=== PATIENT | male | born 1955 | race Caucasian/White ===

== ENCOUNTER 2017-01-04 09:51 | Inpatient (IN) | payer OTHER ==
[2016-12-17 08:54] VITALS: BMI 37.0
--- NOTE | 2016-12-17 09:35 | PAT Medication Instructions ---
Service Date Dec 17, 2016. Current Home Medication List Aspirin (Aspirin Ec), 81 MG PO HS Atenolol (Tenormin), 25 MG PO QPM Atorvastatin (Lipitor), 20 MG PO HS Cetirizine (Zyrtec), 10 MG PO PRN PRN for SKIN IRRITATION Ibuprofen (Advil), 200-600 MG PO Q4H PRN for Pain Medication Instructions For Your Scheduled Surgery - Hold the following medications 2 weeks prior to surgery: Ibuprofen (Advil), 200-600 MG PO Q4H PRN for Pain - Hold the following medications the morning of surgery: Cetirizine (Zyrtec), 10 MG PO PRN PRN for SKIN IRRITATION - Take the following medications the morning of surgery with a sip of water: Tylenol (if needed) - Take the following medications as scheduled the night before surgery: Atorvastatin (Lipitor), 20 MG PO HS Aspirin (Aspirin Ec), 81 MG PO HS Atenolol (Tenormin), 25 MG PO QPM Cetirizine (Zyrtec), 10 MG PO PRN PRN for SKIN IRRITATION Tylenol (if needed) If you have any questions please call us at [phone] or [phone] ( Johanne) or [phone]
[2016-12-17 10:11] LABS: URINE APPEARANCE CLEAR (CLEAR); URINE BILIRUBIN NEG (NEG); URINE COLOR YELLOW; URINE NITRITE NEG (NEG); URINE SPECIFIC GRAVITY 1.025 (1.000-1.030); UROBILINOGEN NEG (NEG); ZZUR CULT IF INDIC CLEAN CATCH NO
[2016-12-17 10:13] LABS: MANUAL MICROSCOPIC REQUIRED? NO; REVIEW REQ? NO
[2016-12-17 10:24] LABS: PROTHROMBIN TIME (PATIENT) 10.6 SECONDS (9.0-12.0)
[2016-12-17 10:34] LABS: BASO % 0.4 %; BASO ABS # 0.02 K/uL (0-0.2); BUN/CREATININE RATIO 21.3 (10-20); CALCIUM 8.8 mg/dl (8.5-10.1); COMPLETE YES; CREATININE 0.88 mg/dl (0.60-1.40); EOS % 1.4 %; HEMATOCRIT 43.9 % (42-52); IG% 0.2 %; LYMPH ABS # 1.39 K/uL (1.2-3.4); MEAN CELL VOLUME 88.2 fL (80-100); MEAN CORPUSCULAR HEMOGLOBIN 30.5 pg (25-34); MEAN CORPUSCULAR HGB CONC 34.6 g/dl (32-36); MEAN PLATELET VOLUME 9.5 fL (7.4-10.4); MONO % 10.2 %; NEUT % 62.8 %; PLATELET COUNT 186 K/uL (130-400); POTASSIUM 4.7 mmol/L (3.5-5.1); RED BLOOD COUNT 4.98 M/uL (4.7-6.1); WHITE BLOOD COUNT 5.57 K/uL (4.8-10.8)
--- NOTE | 2016-12-17 10:45 | DIAGNOSTIC IMAGING REPORT ---
CHEST 2 VIEWS ROUTINE CLINICAL HISTORY: Preoperative evaluation. COMPARISON STUDY: Chest radiograph February 28, 2008. FINDINGS: Lung volumes are normal. No consolidation is identified to suggest pneumonia. Increased density projecting over the thoracic spine at several levels is likely due to lateral osteophytes. Mild cardiomegaly is noted. There is no evidence of pulmonary edema. IMPRESSION: 1. No acute findings. 2. Mild cardiomegaly. Electronically signed by: Castillo Mulligan M.D. 12/17/2016 10:43 AM Dictated Date/Time: 12/17/2016 10:37 AM
--- NOTE | 2017-01-01 14:36 | HISTORY & PHYSICAL EXAMINATION ---
DATE OF ADMISSION: 01/04/2017 CHIEF COMPLAINT: Left knee pain. HISTORY OF PRESENT ILLNESS: Mr. Chanel is a 61-year-old male with a 5-year history of left knee pain. He rates his pain at an 8/10. He has pain with his daily activities. He has limited standing and walking tolerance. Pain is worse with weightbearing. The patient has had injections, bracing, home exercise program and anti-inflammatories with little relief. He has failed conservative treatment and is scheduled for left knee replacement. PAST MEDICAL HISTORY: Hypercholesterolemia and obesity. He denies heart disease, diabetes or DVT. PAST SURGICAL HISTORY: Carpal tunnel release, left total hip arthroplasty and L4-L5 fusion. SOCIAL HISTORY: The patient denies tobacco use. He drinks 1 drink per month. He lives in a split level home. He is and works as a prince. FAMILY HISTORY: Positive for PE in his twin brother after a trauma. MEDICATIONS: Atenolol 20 mg daily, atorvastatin 25 mg daily, aspirin daily, and Advil p.r.n. ALLERGIES: None. REVIEW OF SYSTEMS: See HPI. Ten other systems reviewed, all negative. PHYSICAL EXAMINATION: VITAL SIGNS: Height 5 feet 10 inches, weight 260 pounds, and BMI 37. GENERAL: This is a well-developed and well-nourished male who is alert and oriented x3. Mood and affect are appropriate. HEENT: Normocephalic and atraumatic. Mucous membranes are moist and intact. NECK: Supple without lymphadenopathy. HEART: Regular rate and rhythm without murmurs, rubs or gallops. LUNGS: Clear to auscultation without wheezes or rhonchi. ABDOMEN: Soft and nontender. Bowel sounds are equal and active. EXTREMITIES: No ecchymosis, redness or warmth. Thigh and calf are soft and nontender. He has neutral alignment. Range of motion is from 3-110 degrees with +1 laxity. He is neurovascularly intact with +5/5 strength. X-RAY EXAMINATION: AP and lateral views show joint space narrowing and osteophyte formation. IMPRESSION: Degenerative joint disease, left knee. PLAN: The patient will be admitted for a left total knee arthroplasty. We will plan on aspirin for DVT prophylaxis. The patient's PCP is Dr. Allen. He has [facility] insurance.
[~2017-01-04] VITALS: Ht 177.8 cm; Wt 118.0 kg
[2017-01-04] VITALS (9 sets, daily range): BP systolic 114–145; BP diastolic 67–87; PULSE 60–78; TEMP 36.6–36.7; O2SAT 94–98; Ht 177.8 cm; Wt 118.0 kg
[~2017-01-04 09:51] MED LIST: ACETAMINOPHEN 500 MG TAB PO SCH; ASPI81TA28 PO; ATEN-173 PO; ATOR-22 PO; BUPIVACAINE 0.5 % 5 MG/1 ML PF 10ML VIAL ONE; CEFAZOLIN 3000 MG/65 ML D5W 65 ML IV SCH; CETI10TA84 PO; CeleBREX 200 MG CAP PO SCH; DEXAMETHASONE 4 MG TAB PO SCH; FAMOTIDINE 20 MG TAB PO SCH; GABAPENTIN 300 MG CAP PO SCH; IBUP-1050 PO; LACTATED RINGER'S 1000ML 1,000 ML IV SCH; LACTATED RINGER'S 1000ML 500 ML IV ONE; LACTATED RINGER'S 1000ML IV SCH; METOCLOPRAMIDE HCL 10 MG TAB PO SCH; OXYCODONE HCL 10 MG TABCR (OXYCONTIN) PO SCH; POLYMYXIN B SULFATE 100,000 UNITS in NSS 100ML IR SCH; ROPIVACAINE 5MG/ML 30 ML 150 MG, BUPIVACAINE/EPINEPHR 0.5% MPF 30 ML, KETOROLAC TROMETH... INFIL SCH; VANCOMYCIN INJ 400 MG in NSS 100ML IR SCH
[2017-01-04] MEDS ORDERED: ACET-1256 PO (10:19)
--- NOTE | 2017-01-04 10:33 | History & Physical Bridge Note ---
H&P Re-Evaluation Bridge Note: I have examined the patient, reviewed the History & Physical and in the interval since the performance of the History & Physical I have noted the following changes of clinical significance: No changes noted
[2017-01-04] MEDS ORDERED: FENTANYL CITRATE INJ 50 MCG/1 ML 2 ML VIAL ONE (10:41)
[2017-01-04] MEDS ORDERED: MIDAZOLAM HCL 1 MG/ML 2ML VIAL ONE ×3 (10:41→11:48)
[2017-01-04] MEDS ORDERED: ATROPINE SULFATE 0.1 MG/ML 5ML SYR IV PRN (10:45)
[2017-01-04] MEDS ORDERED: FENTANYL CITRATE INJ 50 MCG/1 ML 2 ML VIAL IV PRN (10:45)
[2017-01-04] MEDS ORDERED: EpHEDrine SULFATE INJ 50 MG/ML AMP IV PRN (10:45)
[2017-01-04] MEDS ORDERED: ONDANSETRON INJ 2 MG/ML 2 ML VIAL IV PRN ×2 (10:45→13:00)
[2017-01-04] MEDS ORDERED: MEPERIDINE HCL 25 MG/ML CARP IV PRN (10:45)
[2017-01-04] MEDS ORDERED: MoRPHine SULFATE 10 MG/ML CARP/VIAL IV PRN (10:45)
[2017-01-04] MEDS: TRANEXAMIC ACID INJ 1,000 MG in SODIUM CHLORIDE 0.9% 100ML 100 ML IV SCH ×2 (11:16→12:42)
[2017-01-04] MEDS ORDERED: BACITRACIN 50000 UNIT VIAL ONE (11:21)
[2017-01-04] MEDS ORDERED: POVIDONE-IODINE OP SOLN 30 ML BTL ONE (11:21)
[2017-01-04] MEDS ORDERED: BUPIVACAINE/EPINEPHRINE 0.25% 1:200,000 30 ML VIAL ONE (11:21)
[2017-01-04] MEDS ORDERED: ORTHO JOINT ANESTHETIC ONE (11:21)
[2017-01-04] MEDS ORDERED: LIDOCAINE HCL 2% 2 ML VIAL (20MG/ML) ONE (12:30)
[2017-01-04] MEDS ORDERED: PROPOFOL IV EMULSION 10 MG/ML 20 ML VIAL IV ONE (12:30)
--- NOTE | 2017-01-04 12:47 | [facility] Post Operative Brief Note ---
Immediate Operative Summary Operative Date Jan 04, 2017. Pre-Operative Diagnosis Left Knee Degenerative Joint Disease Post-Operative Diagnosis Left Knee Degenerative Joint Disease Procedure(s) Performed Left Total Knee Arthroplasty, Cemented Surgeon Dr. Mikie Buckley Global Lead Surgeon(s) Kay Chaidez PA-C Estimated Blood Loss 100mL Findings djd Specimens A: Left Knee Bone and Tissue Complication(s) None Disposition Recovery Room / PACU
[2017-01-04] MEDS ORDERED: CETIRIZINE HCL 10 MG TAB PO PRN (13:00)
[2017-01-04] MEDS ORDERED: BISACODYL 10 MG SUPP PR PRN (13:00)
[2017-01-04] MEDS ORDERED: ALUMINUM/MAGNESIUM/SIMETH (MAALOX MAX) 30 ML UDC PO PRN (13:00)
[2017-01-04] MEDS ORDERED: MoRPHine SULFATE 2 MG/ML CARP IV PRN (13:00)
[2017-01-04] MEDS ORDERED: TRAMADOL HCL 50 MG TAB PO PRN (13:00)
[2017-01-04] MEDS ORDERED: ZOLPIDEM TARTRATE 5 MG TAB PO PRN (13:00)
[2017-01-04] MEDS ORDERED: METOCLOPRAMIDE HCL INJ 5 MG/ML 2 ML VIAL IV PRN (13:00)
[2017-01-04] MEDS ORDERED: KETOROLAC TROMETHAMINE 30 MG/ML VIAL IV. PRN (13:00)
[2017-01-04] MEDS ORDERED: MAGNESIUM HYDROXIDE SUSP 30 ML UDC PO PRN (13:00)
[2017-01-04] MEDS ORDERED: DiphenhydrAMINE HCL 50 MG/ML VIAL IV PRN (13:00)
[2017-01-04] MEDS ORDERED: SOD PHOSPHATE/SOD BIPHOSPHATE ENEMA 132 ML BTL PR PRN (13:00)
--- NOTE | 2017-01-04 13:37 | DIAGNOSTIC IMAGING REPORT ---
LEFT KNEE 1 OR 2 VIEWS ROUTINE CLINICAL HISTORY: AP/LATERAL IN PACU LEFT KNEE joint replacement COMPARISON: None. DISCUSSION: Anatomic alignment status post total left knee arthroplasty. Good contact between prosthetic and underlying bone. Expected soft tissue postoperative change IMPRESSION: Anatomic alignment status post total left knee arthroplasty Electronically signed by: Tomer Merrill M.D. 01/04/2017 1:36 PM Dictated Date/Time: 01/04/2017 1:35 PM
--- NOTE | 2017-01-04 13:53 | Anesthesiology Progress Note ---
Anesthesia Post Op Note Date & Time Jan 04, 2017 at 13:53 Vital Signs Pain Intensity: 0 Vital Signs Past 12 Hours Date Time Temp Pulse Resp B/P Pulse Ox O2 Delivery O2 Flow Rate FiO2 01/04/17 13:45 36.4 61 16 115/65 98 Nasal Cannula 2 01/04/17 13:35 57 16 110/69 98 Mask 10 01/04/17 13:26 58 16 104/67 98 Mask 10 01/04/17 13:16 36.2 63 16 96/67 98 Mask 10 01/04/17 10:24 36.7 60 20 145/87 97 Room Air 01/04/17 10:21 36.7 60 20 145/87 Notes Mental Status: alert / awake / arousable, participated in evaluation Pt Amnestic to Procedure: Yes Nausea / Vomiting: adequately controlled Pain: adequately controlled Airway Patency, RR, SpO2: stable & adequate BP & HR: stable & adequate Hydration State: stable & adequate Neuraxial Anesthesia: was administered, sensory block is resolving Anesthetic Complications: no major complications apparent
[2017-01-04] MEDS: D5W AND 1/2NSS + 20MEQ KCL 1,000 ML IV SCH (15:29)
[2017-01-04] MEDS ORDERED: TRANEXAMIC ACID INJ 1,000 MG in SODIUM CHLORIDE 0.9% 100ML 100 ML IV SCH (19:30)
[2017-01-04] MEDS: CEFAZOLIN IV 2,000 MG in DEXTROSE 5% 50ML 50 ML IV SCH (19:35)
[2017-01-04] MEDS ORDERED: SENNA 8.6 MG TAB PO SCH (21:00)
[2017-01-04] MEDS ORDERED: ATORVASTATIN 20 MG TAB PO SCH (21:00)
[2017-01-04] MEDS: OXYCODONE HCL 10 MG TABCR (OXYCONTIN) PO SCH (21:04)
[2017-01-04] MEDS: ASPIRIN 81 MG ECTAB PO SCH (21:05)
[2017-01-04] MEDS: OXYCODONE HCL IR 5 MG TAB (IMMEDIATE RELEASE) PO PRN (21:49)
[2017-01-04] MEDS: ACETAMINOPHEN 500 MG TAB PO SCH (21:50)
--- NOTE | 2017-01-05 00:06 | OPERATIVE REPORT ---
DATE OF OPERATION: 01/04/2017 PREOPERATIVE DIAGNOSIS: Degenerative arthritis, left knee. POSTOPERATIVE DIAGNOSIS: Same. PROCEDURE: Left total knee with patient matched implant. SURGEON: Dr. Buckley. AUTOMOTIVE DESIGN LAYOUT DRAFTER: BETTY Rowe. ANESTHESIA: Spinal. BLOOD LOSS: 100 mL. REPLACEMENT FLUIDS: 1800 mL of crystalloid. DRAINS: Hemovac x2. CULTURES: None. COMPLICATIONS: None. COMPONENTS USED: Medina \T\ Nephew Journey Knee System: Femur size 7, tibia size 6 x 9, patella size 38. NOTE: BETTY Rowe was present and assisted throughout due to the complicated nature of this case. She helped with preparation and setup. She first assisted throughout and personally closed the capsule, subcutaneous and skin layers and applied the postoperative dressing. DESCRIPTION OF PROCEDURE: Following satisfactory spinal, the patient was supine. A tourniquet was placed but not inflated. The lower extremity was prepared with ChloraPrep and draped sterilely. Following a surgical time-out, a midline incision was made with a trivector approach. The knee showed grade 4 changes throughout, but especially severe in the medial compartment. The cruciate ligaments were excised. The patient matched femoral block was applied. Femoral distal rotation and resection were set and completed. The 4-in-1 block was used to finish preparation of the femur. The patient matched tibial block was applied. Tibial resection was completed. The patella was freehand cut. Soft tissue balancing was completed and a trial reduction showed good tensioning and stability on the collateral ligaments, stable range of motion, and the patella tracked well. The trial components were removed. The capsule was prepared with the orthopedic cocktail. After irrigation, the components were cemented using Simplex G cement. When the cement had hardened, the Betadine soak was performed, the Betadine was then irrigated. Two drains were placed. The arthrotomy was then closed with a running suture of 0 V-Loc. The subcutaneous tissues with 2-0 Vicryl. The skin with a running subcuticular stitch of 3-0 V-Loc. Dermabond and a dry dressing were applied. The patient was returned to his bed in stable condition. I attest to the content of the Intraoperative Record and any orders documented therein. Any exceptio ns are noted below.
[2017-01-05] MEDS: D5W AND 1/2NSS + 20MEQ KCL 1,000 ML IV SCH ×2 (01:34→11:00)
[2017-01-05] MEDS: OXYCODONE HCL IR 5 MG TAB (IMMEDIATE RELEASE) PO PRN ×3 (01:37→16:53)
[2017-01-05 03:12] VITALS: BP 108/66; PULSE 62; TEMP 36.7; O2SAT 98
[2017-01-05] MEDS: CEFAZOLIN IV 2,000 MG in DEXTROSE 5% 50ML 50 ML IV SCH (03:45)
[2017-01-05] MEDS: ACETAMINOPHEN 500 MG TAB PO SCH ×2 (05:33→13:54)
[2017-01-05 07:48] LABS: HEMATOCRIT 36.2 % (42-52); MEAN CELL VOLUME 86.2 fL (80-100); MEAN CORPUSCULAR HEMOGLOBIN 29.8 pg (25-34); MEAN CORPUSCULAR HGB CONC 34.5 g/dl (32-36); MEAN PLATELET VOLUME 9.2 fL (7.4-10.4); PLATELET COUNT 176 K/uL (130-400); WHITE BLOOD COUNT 12.44 K/uL (4.8-10.8)
--- NOTE | 2017-01-05 07:55 | Orthopedic Progress Note ---
Orthopedic Progress Note Date of Service Jan 05, 2017. Subjective Post OP Day: 1 Reports: feeling well, Denies: SOB, calf pain, chest pain, light headedness, nausea / vomiting Objective calves soft nontender, N/V intact, dressing C/D/I, A&O x3, toes mobile, hemovac drainage (300ml latest shift) Date Time Temp Pulse Resp B/P Pulse Ox O2 Delivery O2 Flow Rate FiO2 01/05/17 03:12 36.7 62 16 108/66 98 Room Air 01/04/17 23:45 Room Air 01/04/17 23:27 36.7 65 16 114/67 94 Room Air 01/04/17 19:25 36.7 78 18 129/86 95 Room Air 01/04/17 17:36 71 16 126/83 01/04/17 16:00 98 Nasal Cannula 2.0 01/04/17 15:32 66 16 125/79 98 Nasal Cannula 2.0 01/04/17 15:15 65 16 121/79 01/04/17 14:30 98 Nasal Cannula 2.0 01/04/17 14:30 36.6 63 16 118/73 98 Nasal Cannula 2.0 01/04/17 14:30 98 Nasal Cannula 2.0 01/04/17 14:05 36.4 58 16 113/73 97 Nasal Cannula 2 01/04/17 13:55 36.4 58 16 107/69 95 Nasal Cannula 2 01/04/17 13:45 36.4 61 16 115/65 98 Nasal Cannula 2 01/04/17 13:35 57 16 110/69 98 Mask 10 01/04/17 13:26 58 16 104/67 98 Mask 10 01/04/17 13:16 36.2 63 16 96/67 98 Mask 10 01/04/17 10:24 36.7 60 20 145/87 97 Room Air 01/04/17 10:21 36.7 60 20 145/87 Laboratory Results 24 Hours: Test 01/05/17 07:16 Hematocrit 36.2 % Hemoglobin 12.5 g/dL Assessment & Plan Assessment: POD 1 s/p Left TKA Plan: PT/OT Pt planning for OPPT Will follow HV drainage. If pt leaves today, he will need to come to the office for drain removal tomorrow. Inhouse Planning Pain Management: Celebrex, Oxycontin, Ultram, PO Tylenol, Oxy IR DVT Prophylaxis: TEDs, SCDs, ASA Discharge Planning Discharge Planning: home with oppt Pain Management: Morphine, PO Tylenol, Oxy IR DVT Prophylaxis: TEDs, ASA Therapy: Physical Therapy
--- NOTE | 2017-01-05 08:00 | Discharge Instructions ---
Discharge Instructions Date of Service Jan 05, 2017. Admission Reason for Admission: Left Degenerative Arthritis - Leg/Knee Discharge Discharge Diagnosis / Problem: Left Knee Djd Discharge Goals Goal(s): Decrease discomfort, Improve function Activity Recommendations Activity Limitations: per Instructions/Follow-up section Weightbearing Status: Left weightbearing (as tolerated) . Instructions / Follow-Up Instructions / Follow-Up ACTIVITY RECOMMENDATIONS: SELF CARE INSTRUCTIONS AFTER TOTAL KNEE REPLACEMENT A. You may need to continue a physical therapy program after discharge from the hospital. There are several options available to you. Your doctor will assist you in selecting the best one for you. 1. An out-patient facility 2 to 3 times a week for therapy or home therapy. 2. Continue working on all exercises taught to you in the hospital. Your goals should be to increase bending of your knee to 90 degrees and beyond and to fully straighten your knee. B. You may progress at your own pace from walking with a walker or crutches to a cane; then to no assistive devices. C. Make walking a part of your daily routine. Be up as much as comfortable with rest periods throughout the day. Rest with leg elevation is very important. Use the ice wrap frequently for the first 3-4 weeks. D. There are no restrictions on activities. You may ride in a car, shop, participate in engine manager and all social activities. E. Wear the long elastic stockings (ROBERT hose) 20 hours a day for 2 weeks after surgery. They can be removed several times a day for laundering and for a bath. F. You may shower, no tub baths until cleared by your doctor. SPECIAL CARE INSTRUCTIONS: VERY IMPORTANT TO READ AND REVIEW A. There are a few signs you need to watch for after you are home. Call [facility] if you notice any of the followin. Increased severe knee pain. Some pain is expected especially when you exercise. 2. Increased swelling in your leg or knee; pain or swelling of the calf muscle in either lower leg. 3. Any fluid drainage from the incision. 4. Shortness of breath or chest pain. B. Please call [facility] at if you have any concerns or questions about your operation or recovery. The doctor or his nurse will return your call promptly. C. You must take antibiotics before dental work, bladder, bowel or other surgery. Your doctor will provide you with a permanent care to carry describing this precaution. IMPORTANT: * REMEMBER TO TAKE ASPIRIN, 81 MG, TWICE DAILY FOR 4 WEEKS UNLESS OTHERWISE DIRECTED. THIS IS YOUR BLOOD THINNER. * HIGH RISK PATIENTS MAY BE PRESCRIBED A STRONGER BLOOD THINNER. THIS WILL BE PROVIDED AT DISCHARGE. * CALL IF INCREASED PAIN, REDNESS, DRAINAGE OR FEVER GREATER THAT 101. * WEAR ROBERT HOSE 20 HOURS PER DAY FOR 2 WEEKS. * DERMABOND Prineo- This is a mesh tape dressing that is covered with glue. It should remain in place until the incision is properly healed, usually 10-14 days. This dressing is designed to naturally slough off. You may trim the excess mesh tape as it peels off. Incision may be briefly wet in a shower. Dry immediately by blotting with a clean, dry towel. Do not bath or swim until instructed by your doctor. Do not scratch, rub, or pick at the dressing. Do not apply any topical ointments or lotions until dressing is completely removed and/or instructed by your doctor. There may be a small piece of suture material at one end of your incision. Do not pull or trim this. If it is bothersome or catching on clothing, you may cover it with a band-aid. . FOLLOW UP VISIT: If appointment is not already scheduled: Please call [facility] to make a follow-up appointment for 2 weeks after your surgery at . Current Hospital Diet Patient's current hospital diet: Regular Diet Discharge Diet Recommended Diet: Regular Diet Procedures Procedures Performed: Left Total Knee Arthroplasty, Cemented Pending Studies Studies pending at discharge: no Medical Emergencies . Who to Call and When: Medical Emergencies: If at any time you feel your situation is an emergency, please call 911 immediately. . Non-Emergent Contact Non-Emergency issues call your: Surgeon Call Non-Emergent contact if: temperature is above 101.5, your pain is not controlled, your pain is worsening, wound has increased drainage, wound has increased redness . "Provider Documentation" section prepared by Mg Dove. VTE Core Measure Inpt VTE Proph given/why not?: Other Anticoagulation, T.E.D. Stockings, SCD's [place] Drug Monitoring Program Search Results: patient reviewed within database, no issues identified
[2017-01-05 08:02] VITALS: BP 116/71; PULSE 58; TEMP 36.4; O2SAT 95
[2017-01-05] MEDS ORDERED: ACET-1256 PO (08:05)
[2017-01-05] MEDS ORDERED: SNK PO (08:05)
[2017-01-05] MEDS ORDERED: RXC5 PO (08:05)
[2017-01-05] MEDS ORDERED: MORP15TA19 PO (08:05)
[2017-01-05] MEDS ORDERED: CLB200 PO (08:05)
[2017-01-05] MEDS ORDERED: ASPI81TA28 PO (08:05)
[2017-01-05 08:13] LABS: BUN/CREATININE RATIO 16.4 (10-20); CALCIUM 8.5 mg/dl (8.5-10.1); CREATININE 0.9 mg/dl (0.60-1.40); POTASSIUM 4.1 mmol/L (3.5-5.1)
[2017-01-05] MEDS: ASPIRIN 81 MG ECTAB PO SCH (08:15)
[2017-01-05] MEDS: OXYCODONE HCL 10 MG TABCR (OXYCONTIN) PO SCH (08:15)
[2017-01-05] MEDS ORDERED: MULTIVITAMIN TAB PO SCH (09:00)
[2017-01-05] MEDS ORDERED: PANTOprazole SOD 40 MG TAB PO SCH (09:00)
[2017-01-05 12:33] VITALS: BP 122/73; PULSE 60; TEMP 36.7; O2SAT 95
[2017-01-05 12:38] VITALS: BP 122/73; PULSE 60; TEMP 36.7; O2SAT 95
[2017-01-05 15:22] VITALS: BP 150/88; PULSE 64; TEMP 37; O2SAT 94
[2017-01-06] MEDS ORDERED: CeleBREX 200 MG CAP PO SCH (21:00)
--- NOTE | 2017-01-11 12:04 | DISCHARGE SUMMARY ---
DISCHARGE DIAGNOSIS: Degenerative joint disease left knee. SECONDARY DIAGNOSIS: None. CONSULTS: None. COMPLICATIONS: None. PROCEDURE: The patient underwent a left total knee arthroplasty with Dr. Buckley on 01/04/2017. BRIEF HISTORY: Please see previously dictated history and physical. HOSPITAL SUMMARY: The patient was admitted on the above day for the above procedure. Procedure went without complication. Postop day 1 the patient was feeling well without complaints. Denied chest pain or shortness of breath. Vital signs were stable. He was afebrile. Dressing was clean, dry and intact. He was neurovascularly intact. Calves were soft and nontender. Hemovac drained 300 mL. Hemoglobin was 12.5. The patient began physical therapy per protocol. He was discharged to home later that day in stable condition. For further review please see the chart. Lab, x-ray data and discharge instructions as per chart.
== END 2017-01-05 18:47 | disposition home or self-care (01) | DRG 470 ==
LOC: ENRESERVDT → ENRESERVTM → C.ACU 09:51 → C.3E 10:04
PROVIDERS: ADMIT Orthopaedic Surgery; ATTEND Orthopaedic Surgery
PROC: 0SRD0J9 Replacement of Left Knee Joint with Synthetic Substitute, Cemented, Open Approach (ICD-10-PCS; principal; 2017-01-04 11:30)
DX: M17.12 Unilateral primary osteoarthritis, left knee (principal); E66.9 Obesity, unspecified; I10 Essential (primary) hypertension; E78.00 Pure hypercholesterolemia, unspecified; Z96.642 Presence of left artificial hip joint; Z68.37 Body mass index [BMI] 37.0-37.9, adult; Z98.1 Arthrodesis status; Z79.82 Long term (current) use of aspirin; Z79.1 Long term (current) use of non-steroidal anti-inflammatories (NSAID); Z79.899 Other long term (current) drug therapy

== ENCOUNTER → 2017-04-16 | Outpatient (CLI) | payer OTHER ==
[~2017-04-16] MED LIST changes: +ACET-1256 PO; -ACETAMINOPHEN 500 MG TAB PO SCH; -BUPIVACAINE 0.5 % 5 MG/1 ML PF 10ML VIAL ONE; -CEFAZOLIN 3000 MG/65 ML D5W 65 ML IV SCH; +CLB200 PO; -CeleBREX 200 MG CAP PO SCH; -DEXAMETHASONE 4 MG TAB PO SCH; -FAMOTIDINE 20 MG TAB PO SCH; -GABAPENTIN 300 MG CAP PO SCH; -IBUP-1050 PO; -LACTATED RINGER'S 1000ML 1,000 ML IV SCH; -LACTATED RINGER'S 1000ML 500 ML IV ONE; -LACTATED RINGER'S 1000ML IV SCH; -METOCLOPRAMIDE HCL 10 MG TAB PO SCH; +MORP15TA19 PO; -OXYCODONE HCL 10 MG TABCR (OXYCONTIN) PO SCH; -POLYMYXIN B SULFATE 100,000 UNITS in NSS 100ML IR SCH; -ROPIVACAINE 5MG/ML 30 ML 150 MG, BUPIVACAINE/EPINEPHR 0.5% MPF 30 ML, KETOROLAC TROMETH... INFIL SCH; +RXC5 PO; +SNK PO; -VANCOMYCIN INJ 400 MG in NSS 100ML IR SCH
--- NOTE | 2017-04-16 11:56 | DIAGNOSTIC IMAGING REPORT ---
LEFT INGUINAL ULTRASOUND CLINICAL HISTORY: R10.32 left groin pain COMPARISON STUDY: No previous studies for comparison. FINDINGS: There is a reducible fat-containing left inguinal hernia. IMPRESSION: Reducible fat-containing left inguinal hernia. Electronically signed by: Fred Tanner M.D. 04/16/2017 11:55 AM Dictated Date/Time: 04/16/2017 11:50 AM
== END | disposition home or self-care (01) ==
LOC: C.ULTR 10:35
PROVIDERS: ATTEND Physician Assistant Medical
DX: K40.90 Unilateral inguinal hernia, without obstruction or gangrene, not specified as recurrent (principal)

== ENCOUNTER → 2017-05-13 | Outpatient (CLI) | payer OTHER ==
[2017-05-13 17:53] LABS: MEAN CELL VOLUME 85.7 fL (80-100); MEAN CORPUSCULAR HEMOGLOBIN 28.4 pg (25-34); MEAN CORPUSCULAR HGB CONC 33.1 g/dl (32-36); MEAN PLATELET VOLUME 10.3 fL (7.4-10.4); PLATELET COUNT 147 K/uL (130-400); RED BLOOD COUNT 5.25 M/uL (4.7-6.1); WHITE BLOOD COUNT 6.06 K/uL (4.8-10.8)
[2017-05-13 18:03] LABS: ALT/SGPT 31 U/L (12-78); AST/SGOT 21 U/L (15-37); BLOOD UREA NITROGEN 16 mg/dl (7-18); CALCIUM 9.2 mg/dl (8.5-10.1); CARBON DIOXIDE 28 mmol/L (21-32); CHLORIDE 109 mmol/L (98-107); CHOLESTEROL 121 mg/dl (0-200); GLUCOSE 81 mg/dl (70-99); POTASSIUM 4.7 mmol/L (3.5-5.1); SODIUM 141 mmol/L (136-145)
[2017-05-13 18:09] LABS: ALB/GLOB RATIO 1.1 (0.9-2); ALKALINE PHOSPHATASE 88 U/L (45-117); CHOLESTEROL/HDL RATIO 3.2; HDL CHOLESTEROL 38 mg/dl; LDL CHOLESTEROL CALCULATED 57 mg/dl; PROSTATE SPECIFIC ANTIGEN 0.592 ng/ml (0.000-4.000); TRIGLYCERIDES 132 mg/dl (0-150); VERY LOW DENSITY LIPOPROT CALC 26 mg/dl
[2017-05-14 07:22] LABS: ESTIMATED AVERAGE GLUCOSE 117 mg/dl; HA1C FLAG Normal (Normal)
== END | disposition home or self-care (01) ==
LOC: C.LABBFT 10:43
PROVIDERS: ATTEND Internal Medicine
DX: E78.5 Hyperlipidemia, unspecified (principal); Z12.5 Encounter for screening for malignant neoplasm of prostate; R73.9 Hyperglycemia, unspecified

== ENCOUNTER → 2017-12-22 | Day surgery (SDC) | payer OTHER ==
[2017-12-10 13:29] VITALS: Ht 176.5 cm; Wt 118.2 kg
[~2017-12-22] VITALS: Ht 176.5 cm; Wt 118.2 kg
[~2017-12-22] MED LIST changes: +500ML BSS 0.3ML EPI 1:1000PF IRRIG ONE; -ACET-1256 PO; +ACETAMINOPHEN 325 MG TAB PO PRN; +AMVISC PLUS 0.8ML SYRINGE INT OCU ONE; +ASPCH81X PO; -ASPI81TA28 PO; +ATROPINE SULFATE 0.1 MG/ML 5ML SYR IV PRN; +BSS FLUSH ONE; -CLB200 PO; +ENDOCOAT 0.85ML SYRINGE INT OCU ONE; +EpHEDrine SULFATE INJ 50 MG/ML AMP IV PRN; +EpINEphrine INJ 1MG/ML AMP 1 MG/ML AMP ONE; +LACTATED RINGER'S 1000ML 500 ML IV SCH; +LIDOCAINE 4% OP SOLN DROP CHARGE ONE; +LIDOCAINE 4% OP SOLN DROP CHARGE OPL SCH; +LIDOCAINE HCL 1% MPF 2 ML VIAL ONE; +MIDAZOLAM HCL 1 MG/ML 2ML VIAL ONE; +MIX: 4ML BSS 1ML EPI 1:1000 PF TOP ONE; -MORP15TA19 PO; +MOXIFLOXACIN OPH SOLN PER DROP CHARGE ONE; +ONDANSETRON INJ 2 MG/ML 2 ML VIAL IV PRN; +POVIDONE-IODINE OP SOLN 30 ML BTL ONE; +PROPARACAINE 0.5% OP SOLN PER DROP CHARGE OPL SCH; -RXC5 PO; -SNK PO; +TOBRAMYCIN/DEXAMETHASONE OPH OINT PER APPLN CHARGE ONE
[2017-12-22] MEDS: PHENYLEPHRINE HCL 2.5% OP SOLN PER DROP CHARGE OPL SCH ×3 (09:48→09:58)
[2017-12-22] MEDS: TROPICAMIDE 1% OP SOLN PER DROP CHARGE OPL SCH ×3 (09:49→09:59)
[2017-12-22] MEDS: CYCLOPENTOLATE HCL 1% OP SOLN PER DROP CHARGE OPL SCH ×3 (09:50→10:00)
[2017-12-22] MEDS: MOXIFLOXACIN OPH SOLN PER DROP CHARGE OPL SCH ×3 (09:51→10:01)
--- NOTE | 2017-12-22 11:11 | [facility] Post Operative Brief Note ---
Immediate Operative Summary Operative Date Dec 22, 2017. Pre-Operative Diagnosis Cataract Left Eye Post-Operative Diagnosis Same Procedure(s) Performed Left Cataract Phacoemulsification With Intraocular Lens Implant Surgeon Dr. Fernandez Train Examiner Surgeon(s) None Estimated Blood Loss 0ml Findings Consistent with Post-Op Diagnosis Specimens None Anesthesia Type MAC Complication(s) none Disposition Accompanied Pt To Recovery: no Disposition:
--- NOTE | 2017-12-22 11:12 | [facility] Operative Report ---
Operative Report Date of Service Dec 22, 2017. Operative Report DATE OF OPERATION: 12/22/17 PREOPERATIVE DIAGNOSIS: Senile nuclear cataract, left eye POSTOPERATIVE DIAGNOSIS: Senile nuclear cataract, left eye PROCEDURE PERFORMED: Phacoemulsification with intraocular lens implantation, left eye SURGEON: Dr. Aiden Fernandez ANESTHESIA: Topical with 1% intracameral lidocaine and monitored anesthesia care COMPLICATIONS: None DESCRIPTION OF PROCEDURE: After positively identifying the patient both verbally and by wristband in the preoperative area, the left eye was marked as the operative eye. The patient was then brought back to the operating room by the anesthesia and nursing staff where they were given a drop of Lidocaine and betadine into the operative eye. They were then sterilely prepped and draped in the standard fashion typical for ophthalmic surgery. Steri-strips were placed along the upper eyelids to keep the lashes back, and a lid speculum was placed into the operative eye. At this point, a documented time out was performed with members of the ophthalmology, nursing, and anesthesia staffs all agreeing upon the correct patient, correct location for surgery, correct procedure, and correct type and power of intraocular lens to be implanted. The microscope was then swung into position. First, a paracentesis wound was made using a sideport blade. Then, in sequence, 1% preservative-free lidocaine followed by Endocoat viscoelastic was injected into the anterior chamber. Next , the main incision was made with a keratome blade in triplanar fashion. A sharp cystotome was introduced into the eye and used to create a tear in the anterior capsule, which was directed into a continuous curvilinear capsulorrhexis using Utrata forceps. Hydrodissection was then performed with BSS on a flat-tip cannula. Next, the phacoemulsification handpiece was introduced into the eye and used to remove the nucleus in a [id number] fashion. This was done without complication and then the irrigation-aspiration handpiece was introduced into the eye and used to remove all remaining cortical and epinuclear material. Amvisc was then injected into the anterior chamber as well as into the capsular bag and using the lens injector system, an MX60 6.0 D lens, serial number [id number], and expiration date 01/2018 was injected into the capsular bag and rotated into the correct position. Next, the irrigation- aspiration handpiece was used to remove all remaining Amvisc. BSS was used to hydrate the main wound, and then BSS was injected into the paracentesis site to reach physiologic pressure and then the main wound was checked and found to be watertight. The patient was given drops of Vigamox and Tobradex ointment into the operative eye, and then the surrounding area was cleaned and dried. A clear plastic shield was placed over the eye and the patient was then sat up and taken from the operating room by the anesthesia staff having tolerated the procedure well and suffering no complications. DISPOSITION: The patient was returned to the recovery room in stable condition. I attest to the content of the Intraoperative Record and any orders documented therein. Any exceptions are noted below.
--- NOTE | 2017-12-22 11:13 | Discharge Instructions-SurgCtr ---
Discharge Instructions Date of Service Dec 22, 2017. Visit Reason for Visit: Cataract Left Eye Discharge Discharge Diagnosis / Problem: left cataract Discharge Goals Goal(s): Decrease discomfort, Improve function Activity Recommendations Activity Limitations: as noted below Anesthesia . Post Anesthesia Instructions: If you have had General Anesthesia or IV Sedation: * Do not drive today. * Resume driving when surgeon permits. * Do not make important decisions or sign legal documents today. * Call surgeon for: 1. Temperature elevations greater than 101 degrees F. 2. Uncontrollable pain. 3. Excessive bleeding. 4. Persistent nausea and vomiting. 5. Medication intolerance (nausea, vomiting or rash). * For nausea and vomiting use only clear liquids such as: tea, soda, bouillon until nausea subsides, then gradually increase diet as tolerated. * If you have any concerns or questions, call your surgeon's office. If physician is unavailable and it is an emergency, call 911 or go to the nearest emergency room. . Instructions / Follow-Up Instructions / Follow-Up ACTIVITY RECOMMENDATIONS: * Light activities. * You may walk outside, read, watch television. * You may notice redness on the white part of the eye and some blurry vision - this is normal. MEDICATIONS: Resume previous medications unless instructed otherwise by your surgeon. Start all eye drops at 1:30 pm today: * Eye drops (today): Prednisone - one drop in operative eye every 2 hours while awake Ofloxacin - one drop in operative eye every 2 hours while awake Prolensa - one drop in operative eye daily SPECIAL CARE INSTRUCTIONS: * Tape plastic shield over eye to sleep at night. Call your doctor at with any concerns or problems. FOLLOW UP VISIT: Follow-up with Dr Fernandez at [facility] as scheduled. Diet Recommendations Home Diet: no limitations Procedures Procedures Performed: Left Cataract Phacoemulsification With Intraocular Lens Implant Pending Studies Studies pending at discharge: no Medical Emergencies . Who to Call and When: Medical Emergencies: If at any time you feel your situation is an emergency, please call 911 immediately. . Non-Emergent Contact Non-Emergency issues call your: Surgeon . . "Provider Documentation" section prepared by Aiden Fernandez. .
[2017-12-22 11:14] VITALS: TEMP 36.7
[2017-12-22 11:44] VITALS: BP 126/77; PULSE 65; O2SAT 96
--- NOTE | 2017-12-22 11:44 | Anesthesia Progress Nt - [facility] ---
Anesthesia Post Op Note Date & Time Dec 22, 2017 at 11:43 Vital Signs Pain Intensity: 0 Vital Signs Past 12 Hours Date Time Temp Pulse Resp B/P (MAP) Pulse Ox O2 Delivery O2 Flow Rate FiO2 12/22/17 11:14 36.7 61 16 148/95 (112) 96 Room Air 12/22/17 09:38 36.9 59 18 153/83 (106) 94 Room Air Notes Mental Status: alert / awake / arousable, participated in evaluation Pt Amnestic to Procedure: Yes Nausea / Vomiting: adequately controlled Pain: adequately controlled Airway Patency, RR, SpO2: stable & adequate BP & HR: stable & adequate Hydration State: stable & adequate Anesthetic Complications: no major complications apparent
== END | disposition home or self-care (01) ==
LOC: X.SURG 09:02
PROVIDERS: ATTEND Ophthalmology
DX: H25.12 Age-related nuclear cataract, left eye (principal); I10 Essential (primary) hypertension; E78.00 Pure hypercholesterolemia, unspecified; E66.9 Obesity, unspecified; Z68.37 Body mass index [BMI] 37.0-37.9, adult; Z98.890 Other specified postprocedural states; Z96.649 Presence of unspecified artificial hip joint; Z96.659 Presence of unspecified artificial knee joint; M19.90 Unspecified osteoarthritis, unspecified site

== ENCOUNTER → 2018-01-05 | Day surgery (SDC) | payer OTHER ==
[2017-12-30 14:51] VITALS: Ht 176.5 cm; Wt 118.2 kg
[~2018-01-05] VITALS: Ht 176.5 cm; Wt 118.2 kg
[~2018-01-05] MED LIST changes: -ATROPINE SULFATE 0.1 MG/ML 5ML SYR IV PRN; -EpHEDrine SULFATE INJ 50 MG/ML AMP IV PRN; +FENTANYL CITRATE INJ 50 MCG/1 ML 2 ML VIAL ONE; +IBUP-103 PO; -LIDOCAINE 4% OP SOLN DROP CHARGE OPL SCH; +LIDOCAINE 4% OP SOLN DROP CHARGE OPR SCH; -ONDANSETRON INJ 2 MG/ML 2 ML VIAL IV PRN; -PROPARACAINE 0.5% OP SOLN PER DROP CHARGE OPL SCH; +PROPARACAINE 0.5% OP SOLN PER DROP CHARGE OPR SCH
[2018-01-05] MEDS: PHENYLEPHRINE HCL 2.5% OP SOLN PER DROP CHARGE OPR SCH ×3 (10:35→10:46)
[2018-01-05] MEDS: TROPICAMIDE 1% OP SOLN PER DROP CHARGE OPR SCH ×3 (10:36→10:47)
[2018-01-05] MEDS: CYCLOPENTOLATE HCL 1% OP SOLN PER DROP CHARGE OPR SCH ×3 (10:37→10:48)
[2018-01-05] MEDS: MOXIFLOXACIN OPH SOLN PER DROP CHARGE OPR SCH ×3 (10:38→10:49)
--- NOTE | 2018-01-05 11:44 | [facility] Post Operative Brief Note ---
Immediate Operative Summary Operative Date Jan 05, 2018. Pre-Operative Diagnosis Cataract Right Eye Post-Operative Diagnosis Same Procedure(s) Performed Right Cataract Phacoemulsification With Intraocular Lens Implant Surgeon Dr. Fernandez Plant Engineer Surgeon(s) None Estimated Blood Loss 0 Findings Consistent with Post-Op Diagnosis Specimens None Anesthesia Type MAC Complication(s) none Disposition Accompanied Pt To Recovery: no Disposition:
--- NOTE | 2018-01-05 11:45 | [facility] Operative Report ---
Operative Report Date of Service Jan 05, 2018. Operative Report DATE OF OPERATION: 01/05/18 PREOPERATIVE DIAGNOSIS: Senile nuclear cataract, right eye POSTOPERATIVE DIAGNOSIS: Senile nuclear cataract, right eye PROCEDURE PERFORMED: Phacoemulsification with intraocular lens implantation, right eye SURGEON: Dr. Aiden Fernandez ANESTHESIA: Topical with 1% intracameral lidocaine and monitored anesthesia care COMPLICATIONS: None DESCRIPTION OF PROCEDURE: After positively identifying the patient both verbally and by wristband in the preoperative area, the right eye was marked as the operative eye. The patient was then brought back to the operating room by the anesthesia and nursing staff where they were given a drop of Lidocaine and betadine into the operative eye. They were then sterilely prepped and draped in the standard fashion typical for ophthalmic surgery. Steri-strips were placed along the upper eyelids to keep the lashes back, and a lid speculum was placed into the operative eye. At this point, a documented time out was performed with members of the ophthalmology, nursing, and anesthesia staffs all agreeing upon the correct patient, correct location for surgery, correct procedure, and correct type and power of intraocular lens to be implanted. The microscope was then swung into position. First, a paracentesis wound was made using a sideport blade. Then, in sequence, 1% preservative-free lidocaine followed by Endocoat viscoelastic was injected into the anterior chamber. Next , the main incision was made with a keratome blade in triplanar fashion. A sharp cystotome was introduced into the eye and used to create a tear in the anterior capsule, which was directed into a continuous curvilinear capsulorrhexis using Utrata forceps. Hydrodissection was then performed with BSS on a flat-tip cannula. Next, the phacoemulsification handpiece was introduced into the eye and used to remove the nucleus in a [id number] fashion. This was done without complication and then the irrigation-aspiration handpiece was introduced into the eye and used to remove all remaining cortical and epinuclear material. Amvisc was then injected into the anterior chamber as well as into the capsular bag and using the lens injector system, an MX60 5.0 D lens, serial number [id number], and expiration date 10/2018 was injected into the capsular bag and rotated into the correct position. Next, the irrigation- aspiration handpiece was used to remove all remaining Amvisc. BSS was used to hydrate the main wound, and then BSS was injected into the paracentesis site to reach physiologic pressure and then the main wound was checked and found to be watertight. The patient was given drops of Vigamox and Tobradex ointment into the operative eye, and then the surrounding area was cleaned and dried. A clear plastic shield was placed over the eye and the patient was then sat up and taken from the operating room by the anesthesia staff having tolerated the procedure well and suffering no complications. DISPOSITION: The patient was returned to the recovery room in stable condition. I attest to the content of the Intraoperative Record and any orders documented therein. Any exceptions are noted below.
--- NOTE | 2018-01-05 11:46 | Discharge Instructions-SurgCtr ---
Discharge Instructions Date of Service Jan 05, 2018. Visit Reason for Visit: Right Cataract Discharge Discharge Diagnosis / Problem: right cataract Discharge Goals Goal(s): Decrease discomfort, Improve function Activity Recommendations Activity Limitations: as noted below Anesthesia . Post Anesthesia Instructions: If you have had General Anesthesia or IV Sedation: * Do not drive today. * Resume driving when surgeon permits. * Do not make important decisions or sign legal documents today. * Call surgeon for: 1. Temperature elevations greater than 101 degrees F. 2. Uncontrollable pain. 3. Excessive bleeding. 4. Persistent nausea and vomiting. 5. Medication intolerance (nausea, vomiting or rash). * For nausea and vomiting use only clear liquids such as: tea, soda, bouillon until nausea subsides, then gradually increase diet as tolerated. * If you have any concerns or questions, call your surgeon's office. If physician is unavailable and it is an emergency, call 911 or go to the nearest emergency room. . Instructions / Follow-Up Instructions / Follow-Up ACTIVITY RECOMMENDATIONS: * Light activities. * You may walk outside, read, watch television. * You may notice redness on the white part of the eye and some blurry vision - this is normal. MEDICATIONS: Resume previous medications unless instructed otherwise by your surgeon. Start all eye drops at 2 pm today: * Eye drops (today): Prednisone - one drop in operative eye every 2 hours while awake Ofloxacin - one drop in operative eye every 2 hours while awake Prolensa - one drop in operative eye daily SPECIAL CARE INSTRUCTIONS: * Tape plastic shield over eye to sleep at night. Call your doctor at with any concerns or problems. FOLLOW UP VISIT: Follow-up with Dr Fernandez at [place] office as scheduled. Diet Recommendations Home Diet: no limitations Procedures Procedures Performed: Right Cataract Phacoemulsification With Intraocular Lens Implant Pending Studies Studies pending at discharge: no Medical Emergencies . Who to Call and When: Medical Emergencies: If at any time you feel your situation is an emergency, please call 911 immediately. . Non-Emergent Contact Non-Emergency issues call your: Surgeon . . "Provider Documentation" section prepared by Aiden Fernandez. .
[2018-01-05 11:49] VITALS: TEMP 36.8
--- NOTE | 2018-01-05 12:04 | Anesthesia Progress Nt - [facility] ---
Anesthesia Post Op Note Date & Time Jan 05, 2018 at 12:04 Vital Signs Pain Intensity: 1 Vital Signs Past 12 Hours Date Time Temp Pulse Resp B/P (MAP) Pulse Ox O2 Delivery O2 Flow Rate FiO2 01/05/18 11:49 36.8 60 16 147/84 (105) 96 Room Air 01/05/18 10:28 36.5 61 18 159/97 (117) 94 Room Air Notes Mental Status: alert / awake / arousable, participated in evaluation Pt Amnestic to Procedure: Yes Nausea / Vomiting: adequately controlled Pain: adequately controlled Airway Patency, RR, SpO2: stable & adequate BP & HR: stable & adequate Hydration State: stable & adequate Anesthetic Complications: no major complications apparent
[2018-01-05 12:18] VITALS: BP 158/85; PULSE 72; O2SAT 95
== END | disposition home or self-care (01) ==
LOC: X.SURG 10:19
PROVIDERS: ATTEND Ophthalmology
DX: H25.11 Age-related nuclear cataract, right eye (principal); I10 Essential (primary) hypertension; E78.00 Pure hypercholesterolemia, unspecified; M19.90 Unspecified osteoarthritis, unspecified site; Z79.82 Long term (current) use of aspirin; Z79.899 Other long term (current) drug therapy

== ENCOUNTER 2020-09-14 16:35 | Inpatient (IN) ==
--- NOTE | 2020-09-14 17:19 | Emergency Department Note ---
Impression & Plan COVID-19 virus infection, SOB (shortness of breath), Cough ED Provider Note INFORMANT: Patient ED PROVIDER(S): Lico Davidson MD CHIEF COMPLAINT: Cough PLAN: Disposition: Admitted Condition: Good MEDICAL DECISION MAKING: Patient was diagnosed with COVID-19. He has had a progressive cough that he notes is significant. The patient has some heaviness and burning in his chest with the coughing. He notes the cough cause significant back pain. The patient was given a dose of Hycodan. Chest x-ray was concerning for pneumonitis. His oxygen saturations were concerning. He did not require supplemental oxygen but with his Covid diagnosis and numbers below 94% he was given IV Decadron. The patient was feeling better with regards to his cough. He underwent CT imaging which showed multifocal pneumonia. His CBC showed a decreased white blood cell count and platelet count. He has had a decreased platelet count now for some time. Coags were unremarkable. Slight elevation of AST. BNP and troponin were negative. The patient will benefit from further treatment in the hospital. Consultation was made with Dr. Edison Huitron of the [facility]. Evaluated patient in the ER for further management. He did request a repeat Covid test to help guide his inpatient therapy. This was done and was positive. Triage Nursing notes reviewed and agree them. Vital Signs: reviewed and remarkable for oxygen saturations below 94% Differential diagnosis: COVID-19 complications, reactive airway disease, pneumonia, pneumothorax, COPD, CHF, infections, cardiac ischemia, pulmonary embolism, musculoskeletal, gastrointestinal, as well as other pathologies. Diagnostics interpreted by me: ECG: Twelve-lead ECG reveals a normal sinus rhythm at 83 bpm. There is a nonspecific ST abnormality present. No ST elevation. No depression. Normal axis and QRS. Cardiac Monitoring: Cardiac monitoring ordered by me: The patient was placed on continuous cardiac monitoring and observed. It revealed a sinus tachycardia at 101 beats per minute without ectopy or evidence of dysrhythmia. Imaging studies: Chest x-ray concerning for pneumonitis CT PE study performed and negative for pulmonary embolus however multifocal pneumonia/pneumonitis noted. [facility]PI: The patient is a 64 year old male who presents to the Emergency Room with complaints of SOB. This started 10 days ago and is worsening. The patient also notes the following associated symptoms, have a cough, malaise, and back pain. The patient has found no relieving factors. Current pain is rated as 4/10. Patient was diagnosed with COVID-19. He feels like he is getting worse. Pt denies LOC, headache, fevers, chills, diaphoresis, visual changes, neck pain, chest pain, nausea, vomiting, abdominal pain, melena, hematochezia, urinary symptoms, numbness, weakness, lymphadenopathy, rash, or other complaints. ROS: See above HPI for pertinent positives & negatives. A total of 10 systems reviewed and were otherwise negative. PAST MEDICAL HISTORY:See Below, hypertension PAST SURGICAL HISTORY:See Below, FAMILY HISTORY:See Below SOCIAL HISTORY:See Below, employed HOME MEDICATIONS:See Below ALLERGIES:See Below VITALS:See Below PHYSICAL EXAMINATION: GENERAL: Awake, alert, nontoxic-appearing, in no distress HENT: Normocephalic, atraumatic. Oropharynx unremarkable. EYES: Normal conjunctiva. Sclera non-icteric. NECK: Inspection normal. Non-tender. Supple. No nuchal rigidity. FROM. No masses. RESPIRATORY: Clear to auscultation. No wheezes. No rales. Normal respiratory effort. CARDIAC: Borderline tachycardic rate. Normal rhythm. No murmurs. No rubs. Extremities warm and well perfused. Pulses equal. No JVD. GI: Soft, non-distended. No tenderness to palpation. No rebound or guarding. No masses. RECTAL: Deferred. MUSCULOSKELETAL: Atraumatic. Chest examination reveals no tenderness. The back is symmetrical on inspection without obvious abnormality. There is no CVA tenderness to palpation. No joint edema. LOWER EXTREMITIES: Calves are equal size bilaterally and non-tender. No edema. No discoloration. NEURO: Normal sensorium. No sensory or motor deficits noted. SKIN: No rash or jaundice noted. Lico Davidson MD Past Med/Surg History Medical History (Updated 09/14/20 @ 17:15 by Lico Davidson MD) Cut of foot Deep inguinal pain, left Left groin pain Left knee DJD Nocturia Nonvenomous insect bite of back Pneumonia Prostatitis Tick bite Urinary incontinence Surgical History (Updated 09/10/20 @ 09:03 by Ling Schwab RN) History of back surgery History of carpal tunnel surgery Hx of colonoscopy S/P hip replacement S/P knee surgery Family History (Updated 09/10/20 @ 09:04 by Ling Schwab RN) Mother Breast cancer Hypertension Lung disease Father Colorectal cancer Sister Myocardial infarction Hypertension Brother Pulmonary embolism Denies family history of Ovarian cancer Prostate cancer Social History (Updated 08/26/20 @ 11:16 by Felicita Villa) Smoking Status: Never smoker Second Hand Exposure: No; Hx Alcohol Use: Yes Hx Substance Use: No Visual Impairment: No Limitations Hearing Ability: Normal marital status: Current Living Situation: Spouse current occupational status: employed current occupation: self employed Feels Safe at Home: Yes Dental Care, Regularly: Yes Physical Activity Frequency: Does not Exercise Allergies Allergies Allergy/AdvReac Type Severity Reaction Status Date / Time No Known Allergies Allergy Verified 09/14/20 19:04 Home Meds Home Medications Medication Instructions Recorded Confirmed aspirin 81 mg tablet,delayed 81 mg PO DAILY 08/10/19 09/14/20 release ibuprofen 200 mg tablet 200 mg PO QID PRN 08/10/19 09/14/20 cetirizine 10 mg tablet 10 mg PO DAILY PRN 08/17/19 09/14/20 Previous Rx's Medication Instructions Recorded atenolol 25 mg tablet 25 mg PO HS #90 tab 11/23/19 atorvastatin 20 mg tablet 20 mg PO DAILY #90 tab 02/07/20 doxazosin 2 mg tablet 2 mg PO DAILY #30 tab 09/06/20 Results & Data (ED) Vital Signs Vital Signs - 24 hr 09/14/20 16:36 09/14/20 16:47 09/14/20 19:01 Temperature 37.4 C Temperature Source Oral Pulse Rate 101 H Pulse Rate from SpO2 Sensor 93 H Respiratory Rate 25 H Respiratory Effort / Characteristics SOB on Exertion Respiratory Depth Shallow Blood Pressure 187/96 H Blood Pressure Mean 126 Pulse Oximetry 93 94 96 Oxygen Delivery Method Room Air Room Air Sepsis Recent Fever Within 48 Hours Yes Sepsis New/Unexplained Change in Mental Status No Sepsis Action Taken by Nursing No Action Required 09/14/20 19:31 09/14/20 20:07 09/14/20 20:31 Temperature Temperature Source Pulse Rate Pulse Rate from SpO2 Sensor 89 82 104 H Respiratory Rate Respiratory Effort / Characteristics Respiratory Depth Blood Pressure Blood Pressure Mean Pulse Oximetry 96 96 93 Oxygen Delivery Method Sepsis Recent Fever Within 48 Hours Sepsis New/Unexplained Change in Mental Status Sepsis Action Taken by Nursing 09/14/20 21:00 09/14/20 21:27 09/14/20 21:30 Temperature Temperature Source Pulse Rate Pulse Rate from SpO2 Sensor 77 78 77 Respiratory Rate Respiratory Effort / Characteristics Respiratory Depth Blood Pressure 171/95 H 149/88 H Blood Pressure Mean 109 93 Pulse Oximetry 94 94 94 Oxygen Delivery Method Sepsis Recent Fever Within 48 Hours Sepsis New/Unexplained Change in Mental Status Sepsis Action Taken by Nursing Laboratory Data Result diagrams: 09/14/20 17:20 09/14/20 17:20 Lab Results 09/14/20 09/14/20 09/14/20 Range/Units 17:20 17:20 17:20 WBC 4.12 L (4.8-10.8) K/uL RBC 4.77 (4.7-6.1) M/uL Hgb 14.2 (14.0-18.0) g/dL Hct 41.2 L (42-52) % MCV 86.4 (80-100) fL MCH 29.8 (25-34) pg MCHC 34.5 (32-36) g/dL RDW Std Deviation 42.7 (36.4-46.3) fL RDW Coeff of Lyly 13.3 (11.5-14.5) % Plt Count 108 L (130-400) K/uL MPV 11.0 H (7.4-10.4) fL Immature Gran % (Auto) 0.0 % Neut % (Auto) 72.9 % Lymph % (Auto) 15.3 % Salem % (Auto) 11.4 % Eos % (Auto) 0.2 % Baso % (Auto) 0.2 % Neut # (Auto) 3.00 (1.4-6.5) K/uL Lymph # (Auto) 0.63 L (1.2-3.4) K/uL Salem # (Auto) 0.47 (0.11-0.59) K/uL Eos # (Auto) 0.01 (0-0.5) K/uL Baso # (Auto) 0.01 (0-0.2) K/uL Immature Gran # (Auto) 0.00 (0.00-0.02) K/uL PT 10.9 (9.0-12.0) Seconds INR 1.0 (0.9-1.1) APTT 28.7 (21.0-31.0) Seconds PTT Ratio 1.0 Sodium 137 (136-145) mmol/L Potassium 3.8 (3.5-5.1) mmol/L Chloride 104 (98-107) mmol/L Carbon Dioxide 26 (21-32) mmol/L Anion Gap 7.0 (3-11) BUN 12 (7-18) mg/dl Creatinine 0.91 (0.6-1.4) mg/dl Est Cr Clr Drug Dosing 111.2 ml/min Est GFR ( Amer) 103.6 Est GFR (Non-Af Amer) 89.4 BUN/Creatinine Ratio 13.2 (10-20) Glucose 95 (70-99) mg/dl Calcium 8.5 (8.5-10.1) mg/dl Magnesium 2.0 (1.8-2.4) mg/dl Total Bilirubin 0.6 (0.2-1) mg/dl AST 43 H (15-37) U/L ALT 60 (12-78) U/L Alkaline Phosphatase 79 (45-117) U/L Troponin I < 0.015 (0-0.045) ng/ml NT-Pro-B Natriuret Pep 50 (0-900) pg/ml Total Protein 7.2 (6.4-8.2) gm/dl Albumin 3.6 (3.4-5.0) gm/dl Globulin 3.6 (2.5-4.0) gm/dl Albumin/Globulin Ratio 1.0 (0.9-2) COVID-19 Eval Order SARS-CoV-2, RNA, NAAT (NEGATIVE) Blood Type Antibody Screen 09/14/20 09/14/20 09/14/20 Range/Units 21:25 21:25 21:51 WBC (4.8-10.8) K/uL RBC (4.7-6.1) M/uL Hgb (14.0-18.0) g/dL Hct (42-52) % MCV (80-100) fL MCH (25-34) pg MCHC (32-36) g/dL RDW Std Deviation (36.4-46.3) fL RDW Coeff of Lyly (11.5-14.5) % Plt Count (130-400) K/uL MPV (7.4-10.4) fL Immature Gran % (Auto) % Neut % (Auto) % Lymph % (Auto) % [place] % (Auto) % Eos % (Auto) % Baso % (Auto) % Neut # (Auto) (1.4-6.5) K/uL Lymph # (Auto) (1.2-3.4) K/uL [place] # (Auto) (0.11-0.59) K/uL Eos # (Auto) (0-0.5) K/uL Baso # (Auto) (0-0.2) K/uL Immature Gran # (Auto) (0.00-0.02) K/uL PT (9.0-12.0) Seconds INR (0.9-1.1) APTT (21.0-31.0) Seconds PTT Ratio Sodium (136-145) mmol/L Potassium (3.5-5.1) mmol/L Chloride (98-107) mmol/L Carbon Dioxide (21-32) mmol/L Anion Gap (3-11) BUN (7-18) mg/dl Creatinine (0.6-1.4) mg/dl Est Cr Clr Drug Dosing ml/min Est GFR ( Amer) Est GFR (Non-Af Amer) BUN/Creatinine Ratio (10-20) Glucose (70-99) mg/dl Calcium (8.5-10.1) mg/dl Magnesium (1.8-2.4) mg/dl Total Bilirubin (0.2-1) mg/dl AST (15-37) U/L ALT (12-78) U/L Alkaline Phosphatase (45-117) U/L Troponin I (0-0.045) ng/ml NT-Pro-B Natriuret Pep (0-900) pg/ml Total Protein (6.4-8.2) gm/dl Albumin (3.4-5.0) gm/dl Globulin (2.5-4.0) gm/dl Albumin/Globulin Ratio (0.9-2) COVID-19 Eval Order Covid19 [facility] SARS-CoV-2, RNA, NAAT POSITIVE A* (NEGATIVE) Blood Type O Positive Antibody Screen NEGATIVE Administered Medications Discontinued Medications Dexamethasone (Dexamethasone Sod Inj 10 Mg/Ml Vial) 6 mg IV NOW ONE Stop: 09/14/20 19:07 Last Admin: 09/14/20 19:30 Dose: 6 mg Documented by: [id number] Hydrocodone Bit/Homatropine Methylb (Hydrocodone/Homatropine Syrup 5mg/1.5mg 5ml Udp) 5 ml PO NOW STA Stop: 09/14/20 17:27 Last Admin: 09/14/20 18:45 Dose: 5 ml Documented by: [id number] Ioversol (Optiray 320 125ml) 118 ml IV ONCE ONE Stop: 09/14/20 19:36 Last Admin: 09/14/20 19:35 Dose: 118 ml Documented by: [id number] Discharge Plan Visit Data Chief Complaint: Cough Stated Complaint: covid+, cough ED Provider: Lico Davidson Discharge Problem: COVID-19 virus infection, SOB (shortness of breath), Cough Forms Stand Alone Forms: [facility] Prescriptions Prescriptions: No Action atenolol 25 mg tablet 25 mg PO HS Qty: 90 RF: 3 atorvastatin 20 mg tablet 20 mg PO DAILY Qty: 90 RF: 3 doxazosin [Cardura] 2 mg tablet 2 mg PO DAILY Qty: 30 RF: 11 aspirin 81 mg tablet,delayed release (DR/EC) 81 mg PO DAILY RF: 0 ibuprofen 200 mg tablet 200 mg PO QID PRN (Reason: Pain) RF: 0 cetirizine 10 mg tablet 10 mg PO DAILY PRN (Reason: Allergy Symptoms) RF: 0
[2020-09-14] MEDS ORDERED: HYDROcodone/HOMATROPINE SYRUP 5MG/1.5MG 5ML UDP PO STA (17:26)
[2020-09-14 17:34] LABS: Basophils # (auto) 0.01 K/uL (0-0.2); Basophils % (auto) 0.2 %; Eosinophils # (auto) 0.01 K/uL (0-0.5); Eosinophils % (auto) 0.2 %; Hematocrit (blood only) 41.2 % (42-52); Hemoglobin 14.2 g/dL (14.0-18.0); Lymphocytes # (auto) 0.63 K/uL (1.2-3.4); Lymphocytes % (auto) 15.3 %; Mean Corpuscular Hemoglobin 29.8 pg (25-34); Mean Corpuscular Hgb Conc 34.5 g/dL (32-36); Mean Corpuscular Volume 86.4 fL (80-100); Monocytes # (auto) 0.47 K/uL (0.11-0.59); Monocytes % (auto) 11.4 %; Neutrophils % (auto) 72.9 %; Platelet Count 108 K/uL (130-400); RDW Coefficient of Variation 13.3 % (11.5-14.5); RDW Standard Deviation 42.7 fL (36.4-46.3); Red Blood Count 4.77 M/uL (4.7-6.1); White Blood Count 4.12 K/uL (4.8-10.8)
[2020-09-14 17:58] LABS: Partial Thromboplastin Time 28.7 Seconds (21.0-31.0); Prothrombin Time 10.9 Seconds (9.0-12.0)
[2020-09-14 18:07] LABS: Alanine Aminotransferase 60 U/L (12-78); Albumin Level 3.6 gm/dl (3.4-5.0); Aspartate Aminotransferase 43 U/L (15-37); BUN Creatinine Ratio 13.2 (10-20); Blood Urea Nitrogen 12 mg/dl (7-18); Calcium 8.5 mg/dl (8.5-10.1); Carbon Dioxide 26 mmol/L (21-32); Chloride 104 mmol/L (98-107); Creatinine Clr Calc Pharmacy 111.2 ml/min; Est GFR (African American) 103.6; Est GFR (Non-African American) 89.4; Glucose 95 mg/dl (70-99); Potassium 3.8 mmol/L (3.5-5.1); Sodium 137 mmol/L (136-145)
--- NOTE | 2020-09-14 18:10 | XRay Report ---
SINGLE VIEW CHEST CLINICAL HISTORY: Dyspnea. FINDINGS: 2 AP, portable, upright chest radiographs are compared to study dated 12/17/2016. The examin ation is degraded by portable technique, apical lordotic positioning, and patient rotation. The heart is enlarged. The pulmonary vasculature is noncongested. There are hazy bilateral interstitial airspa ce opacities. No large pleural effusion or pneumothorax is seen. The skeletal structures are osteopen ic. The bony thorax is grossly intact. IMPRESSION: 1. There are hazy bilateral interstitial airspace opacities, typical for an infectious/inflammatory p neumonitis. Clinical correlation will be required. 2. Cardiomegaly without radiographic evidence of congestive failure. ACT 112: Negative or not required by law. Electronically signed by: Yan Talbert M.D. 09/14/2020 6:08 PM
[2020-09-14 18:12] LABS: Alkaline Phosphatase 79 U/L (45-117); Bilirubin,Total 0.6 mg/dl (0.2-1); Globulin 3.6 gm/dl (2.5-4.0); NT Pro B Type Natriuretic Pept 50 pg/ml (0-900); Total Protein 7.2 gm/dl (6.4-8.2); Troponin I < 0.015 ng/ml (0-0.045)
[2020-09-14] MEDS ORDERED: DEXAMETHASONE SOD INJ 10 MG/ML VIAL IV ONE (19:06)
[2020-09-14] MEDS ORDERED: OPTIRAY 320 125ml IV ONE (19:35)
--- NOTE | 2020-09-14 19:57 | CT Scan Report ---
CT ANGIOGRAM OF THE CHEST CLINICAL HISTORY: Dyspnea. Tachycardia. Covid. COMPARISON STUDY: Chest x-ray dated 09/14/2020. TECHNIQUE: Following the IV administration of 118 cc of Optiray 320, CT angiogram of the chest was pe rformed from the upper abdomen to the thoracic inlet utilizing the pulmonary embolus protocol. Images are reviewed in the axial, sagittal, and coronal planes. 3-D MIPS images are created and assessed. I V contrast was administered without complication. A dose lowering technique was utilized adhering to the principles of ALARA. CT DOSE: 960.90 mGy.cm FINDINGS: Thyroid: Imaged portions of the thyroid gland are normal in size and attenuation. Thoracic aorta: There is mild atherosclerotic calcification of the thoracic aorta, which is normal in caliber and demonstrates standard 3-vessel arch anatomy. No dissection is seen. Pulmonary vasculature: The pulmonary trunk is normal in caliber. There are no filling defects identif ied in main, lobar, or segmental pulmonary branches to suggest pulmonary embolus. Heart: The heart is enlarged and without pericardial effusion. The coronary arteries are densely calc ified. Lungs and pleural spaces: There is multifocal groundglass consolidation identified throughout both lynda ngs with a subpleural predominance. The trachea and central airways are clear. No pleural effusion is identified. A 9 mm pulmonary nodule at the right apex is seen on image #237. Mediastinum: There are mildly enlarged mediastinal lymph nodes. A subcarinal node on image #162 measu res 1.6 cm in short axis. AP window node on image #207 measures 11 mm in short axis. These are likely reactive. Bernadette: Mildly enlarged hilar nodes measure up to 10 mm in short axis. Axillae: There is no axillary lymphadenopathy. Upper abdomen: There is a small hiatal hernia. A 2.8 cm cyst is partially visualized in the upper kristen e of the right kidney. The liver appears steatotic. Skeletal structures: The skeletal structures are osteopenic. Degenerative change and DISH are noted i n the thoracic spine. No lytic or blastic bony lesions are seen. IMPRESSION: 1. There is no evidence of pulmonary embolus in the main, lobar, or segmental pulmonary arteries. 2. Multifocal groundglass consolidation is seen throughout both lungs, typical for an infectious/infl ammatory pneumonitis. 3. Cardiomegaly. 4. A 9 mm pulmonary nodule is seen at the right apex. Follow-up is recommended as per the Fleischner criteria below. 5. Additional findings as above. Please refer to below summary of Fleischner criteria recommendations for follow-up of incidental CT n odules (Jasson Cortez, Guidelines for management of small pulmonary nodules detected on CT scans: A maico heller from the Fleischner Society, Radiology 237: [phone].) SOLID NODULES Solitary nodule size: <6 mm * low risk patients: no follow-up needed * high risk patients: optional CT at 12 months Solitary nodule size: 6-8 mm * low risk patients: follow-up at 6-12 months, then consider further follow-up at 18-24 months * high risk patients: initial follow-up CT at 6-12 months and then at 18-24 months if no change Solitary nodule size: >8 mm * either low or high risk patients - consider follow-up CT at 3 months, and/or CT-PET, and/or biopsy Multiple nodules size: <6 mm * low risk patients: no routine follow-up * high risk patients: optional CT at 12 months Multiple nodules size: 6-8 mm * low risk patients: follow-up at 3-6 months, then consider further follow-up at 18-24 months * high risk patients: follow-up at 3-6 months, then at 18-24 months if no change Multiple nodules size: >8 mm * low risk patients: follow-up at 3-6 months, then consider further follow-up at 18-24 months * high risk patients: follow-up at 3-6 months, then at 18-24 months if no change Note: newly detected indeterminate nodule in persons 35 years of age or older. * low risk patients: minimal or absent history of smoking and/or other known risk factors * high risk patients: history of smoking or of other known risk factors (e.g. first degree relative with lung cancer, or exposure to asbestos, radon, uranium) * if a nodule up to 8 mm is partly solid or is ground glass further follow-up is required after 24 m onths to exclude possible slow growing adenocarcinoma (GUSTAVO) SUBSOLID NODULES Solitary pure ground-glass nodule * nodule size <6 mm - no CT follow-up required * nodule size >=6 mm - follow-up CT at 6-12 months, then every 2 years until 5 years Solitary part-solid nodule * nodule size <6 mm - no CT follow-up required * nodule size >=6 mm - follow-up CT at 3-6 months. If unchanged, and solid component remains <6 mm, then annual follow-up for 5 years Multiple subsolid nodules * nodule size <6 mm - follow-up CT at 3-6 months, consider further follow-up at 2 and 4 years if sta ble * nodule size >=6 mm - follow-up CT at 3-6 months, subsequent management based on the most suspiciou s nodule(s) ACT 112: Negative or not required by law. Electronically signed by: Yan Talbert M.D. 09/14/2020 7:55 PM
--- NOTE | 2020-09-14 23:21 | History & Physical Report ---
Date of Service September 14, 2020 Assessment & Plan (1) COVID-19 virus infection: COVID-19 virus infection with hypoxia- Dexamethasone 6 mg IV daily Remdesivir IV per protocol Azithromycin 500 mg IV daily Zinc sulfate 220 mg p.o. daily Ventolin HFA 2 puffs 4 times daily, and every 2 hours as needed Hycodan syrup 5 mils p.o. every 4 hours as needed. Cough needs to be suppressed to prevent worsening left inguinal hernia pain Present on Admission?: Yes (2) Hypoxia: See above Present on Admission?: Yes (3) Cough: See above Present on Admission?: Yes (4) BPH (benign prostatic hyperplasia): BPH with LUTS- Continue doxazosin 2 mg p.o. daily Present on Admission?: Yes (5) Hypertension: Continue aspirin and atenolol Present on Admission?: Yes (6) Inguinal hernia, left: Patient reports he was due for surgery in 1 week, but had to be canceled due to the Covid infection. We will suppress cough with Hycodan to help prevent worsening pain Present on Admission?: Yes (7) Hypercholesteremia: Continue atorvastatin 20 mg daily Present on Admission?: Yes History of Present Illness Chief Complaint: The patient presents to the emergency department with a worsening cough, chest heaviness and burning, all of which had worsened since initially been diagnosed with COVID-19 virus at a drive-through testing center where testing was performed 7 days ago Primary Care Provider: Neo Allen MD Work-up in the emergency departmentThe patient is a 64-year-old male with a past medical history including arthritis, BPH, cellulitis, hypertension, left inguinal hernia, prostatitis, urinary incontinence, impaired fasting glucose, hypercholesterolemia and morbid obesity. He presents as noted above. Work-up in the emergency department included a pulse ox of 93% on room air. Chest x-ray showed moderately severe bilateral interstitial infiltrates and pneumonia. CT angio of chest PE protocol was negative for PE, but did show bilateral interstitial pneumonitis, and pulmonary nodule 9 mm in size. Pertinent laboratories include the following: Platelets 108, AST 43 Allergies Allergy/AdvReac Type Severity Reaction Status Date / Time No Known Allergies Allergy Verified 09/14/20 19:04 Home Medications Medication Instructions Recorded Confirmed Type aspirin 81 mg tablet,delayed 81 mg PO DAILY 08/10/19 09/14/20 History release ibuprofen 200 mg tablet 200 mg PO QID PRN 08/10/19 09/14/20 History cetirizine 10 mg tablet 10 mg PO DAILY PRN 08/17/19 09/14/20 History atenolol 25 mg tablet 25 mg PO HS #90 tab 11/23/19 09/14/20 Rx atorvastatin 20 mg tablet 20 mg PO DAILY #90 tab 02/07/20 09/14/20 Rx doxazosin 2 mg tablet 2 mg PO DAILY #30 tab 09/06/20 09/14/20 Rx Past Med/Surg History Medical History (Updated 09/15/20 @ 04:52 by Edison Reyes MD) Cut of foot Deep inguinal pain, left Left groin pain Left knee DJD Nocturia Nonvenomous insect bite of back Pneumonia Prostatitis Tick bite Urinary incontinence Surgical History (Updated 09/10/20 @ 09:03 by Ling Schwab RN) History of back surgery History of carpal tunnel surgery Hx of colonoscopy S/P hip replacement S/P knee surgery Family History (Updated 09/10/20 @ 09:04 by Ling Schwab RN) Mother Breast cancer Hypertension Lung disease Father Colorectal cancer Sister Myocardial infarction Hypertension Brother Pulmonary embolism Denies family history of Ovarian cancer Prostate cancer Social History (Updated 08/26/20 @ 11:16 by Felicita Villa) Smoking Status: Never smoker Second Hand Exposure: No; Hx Alcohol Use: No Hx Substance Use: No Preferred Language: Macanese Communication Ability: Effective Visual Impairment: No Limitations Hearing Ability: Normal Beliefs That Will Affect Care: None marital status: Current Living Situation: Spouse current occupational status: employed current occupation: self employed Feels Safe at Home: Yes Safety Concerns: Feels Safe At This Time Dental Care, Regularly: Yes Physical Activity Frequency: Does not Exercise Review of Systems Review of Systems: The patient denies chest pain, palpitations, lower extremity swelling, sore throat, fevers, chills, sweats, nausea, vomiting, diarrhea , constipation, abdominal pain, pelvic pain, blood in urine or stool, dysuria, urinary frequency or urgency, lightheadedness, dizziness, headache, memory loss, loss of consciousness, rash, abnormal bruising or bleeding, imbalance, focal weakness, numbness or tingling in arms or legs, generalized arthralgias or myalgias, back or neck pain, or night sweats. The review of systems is otherwise negative other than for that already noted above, and at least 10 systems have been reviewed. Physical Exam Physical Exam: The patient is awake, alert and oriented 3, well developed and well nourished, normocephalic and atraumatic, lying in bed and in no acute distress. HEENT--PERRL, EOMI, mucous membranes and oropharynx normal. Neck--supple. No JVD. No bruits. Thyroid normal, trachea midline, no adenopathy. Heart--normal S1 and S2. No murmurs, rubs or gallops. Lungs--coarse breath sounds bilaterally. No respiratory distress, no accessory muscle use. Abdomen--normal bowel sounds and soft. Nontender. Nondistended. Morbidly obese Extremities--no cyanosis or clubbing. No edema. Dermatologic--normal skin turgor, normal color, no abnormal lymph nodes, no rash. Neurologic--cranial nerves II through XII grossly intact. Rheumatologic--normal range of motion. Psychiatric--normal affect. Results & Data Results & Data ([place]) Vital Signs (Past 12 Hours) Vital Signs Temp Pulse Resp BP Pulse Ox 09/14/20 21:30 149/88 H 94 09/14/20 21:27 171/95 H 94 09/14/20 21:00 94 09/14/20 20:31 93 09/14/20 20:07 96 09/14/20 19:31 96 09/14/20 19:01 96 09/14/20 16:47 94 09/14/20 16:36 99.3 F 101 H 25 H 187/96 H 93 Laboratory Results Laboratory Results WBC 4.12 K/uL (4.8-10.8) L 09/14/20 17:20 RBC 4.77 M/uL (4.7-6.1) 09/14/20 17:20 Hgb 14.2 g/dL (14.0-18.0) 09/14/20 17:20 Hct 41.2 % (42-52) L 09/14/20 17:20 MCV 86.4 fL (80-100) 09/14/20 17:20 MCH 29.8 pg (25-34) 09/14/20 17:20 MCHC 34.5 g/dL (32-36) 09/14/20 17:20 RDW Std Deviation 42.7 fL (36.4-46.3) 09/14/20 17:20 RDW Coeff of Lyly 13.3 % (11.5-14.5) 09/14/20 17:20 Plt Count 108 K/uL (130-400) L 09/14/20 17:20 MPV 11.0 fL (7.4-10.4) H 09/14/20 17:20 Immature Gran % (Auto) 0.0 % 09/14/20 17:20 Neut % (Auto) 72.9 % 09/14/20 17:20 Lymph % (Auto) 15.3 % 09/14/20 17:20 [place] % (Auto) 11.4 % 09/14/20 17:20 Eos % (Auto) 0.2 % 09/14/20 17:20 Baso % (Auto) 0.2 % 09/14/20 17:20 Neut # (Auto) 3.00 K/uL (1.4-6.5) 09/14/20 17:20 Lymph # (Auto) 0.63 K/uL (1.2-3.4) L 09/14/20 17:20 [place] # (Auto) 0.47 K/uL (0.11-0.59) 09/14/20 17:20 Eos # (Auto) 0.01 K/uL (0-0.5) 09/14/20 17:20 Baso # (Auto) 0.01 K/uL (0-0.2) 09/14/20 17:20 Immature Gran # (Auto) 0.00 K/uL (0.00-0.02) 09/14/20 17:20 PT 10.9 Seconds (9.0-12.0) 09/14/20 17:20 INR 1.0 (0.9-1.1) 09/14/20 17:20 APTT 28.7 Seconds (21.0-31.0) 09/14/20 17:20 PTT Ratio 1.0 09/14/20 17:20 Sodium 137 mmol/L (136-145) 09/14/20 17:20 Potassium 3.8 mmol/L (3.5-5.1) 09/14/20 17:20 Chloride 104 mmol/L (98-107) 09/14/20 17:20 Carbon Dioxide 26 mmol/L (21-32) 09/14/20 17:20 Anion Gap 7.0 (3-11) 09/14/20 17:20 BUN 12 mg/dl (7-18) 09/14/20 17:20 Creatinine 0.91 mg/dl (0.6-1.4) 09/14/20 17:20 Est Cr Clr Drug Dosing 111.2 ml/min 09/14/20 17:20 Est GFR ( Amer) 103.6 09/14/20 17:20 Est GFR (Non-Af Amer) 89.4 09/14/20 17:20 BUN/Creatinine Ratio 13.2 (10-20) 09/14/20 17:20 Glucose 95 mg/dl (70-99) 09/14/20 17:20 Calcium 8.5 mg/dl (8.5-10.1) 09/14/20 17:20 Magnesium 2.0 mg/dl (1.8-2.4) 09/14/20 17:20 Total Bilirubin 0.6 mg/dl (0.2-1) 09/14/20 17:20 AST 43 U/L (15-37) H 09/14/20 17:20 ALT 60 U/L (12-78) 09/14/20 17:20 Alkaline Phosphatase 79 U/L (45-117) 09/14/20 17:20 Troponin I < 0.015 ng/ml (0-0.045) 09/14/20 17:20 NT-Pro-B Natriuret Pep 50 pg/ml (0-900) 09/14/20 17:20 Total Protein 7.2 gm/dl (6.4-8.2) 09/14/20 17:20 Albumin 3.6 gm/dl (3.4-5.0) 09/14/20 17:20 Globulin 3.6 gm/dl (2.5-4.0) 09/14/20 17:20 Albumin/Globulin Ratio 1.0 (0.9-2) 09/14/20 17:20 COVID-19 [facility] 09/14/20 21:25 SARS-CoV-2, RNA, NAAT POSITIVE (NEGATIVE) A* 09/14/20 21:25 Blood Type O Positive 09/14/20 21:51 Antibody Screen NEGATIVE 09/14/20 21:51 Diagnostic Findings [facility], [id number] XRay Report Patient: TYRON ANDRADE Date: 09/14/20MR#: [id number]: 166 LUPE DRAcct ID:[id number]: Date: 1955[facility] Zip: [place] [id number]: 64Location: EDSex: MRoom/Bed:Att Phy:Diagnosis: covid+, coughPri Phy: Neo Allen, III, MDService Date: 09/14/20Fam Phy:Interpreting Phy: Yan Talbert MDAdmit Phy: Ordering Phy: Lico Davidson MD cc: ~ SINGLE VIEW CHEST CLINICAL HISTORY: Dyspnea. FINDINGS: 2 AP, portable, upright chest radiographs are compared to study dated 12/17/2016. The examination is degraded by portable technique, apical lordotic positioning, and patient rotation. The heart is enlarged. The pulmonary vasculature is noncongested. There are hazy bilateral interstitial airspace opacities. No large pleural effusion or pneumothorax is seen. The skeletal structures are osteopenic. The bony thorax is grossly intact. IMPRESSION: 1. There are hazy bilateral interstitial airspace opacities, typical for an infectious/inflammatory pneumonitis. Clinical correlation will be required. 2. Cardiomegaly without radiographic evidence of congestive failure. ACT 112: Negative or not required by law. Electronically signed by: Yan Talbert M.D. 09/14/2020 6:08 PM Dictated: 09/14/201806Transcribed: 09/14/201806 [facility], [id number] CT Scan Report Patient: TYRON ANDRADE Date: 09/14/20MR#: [id number]: 166 LUPE DRAcct ID:[id number]: Date: 1955[facility] Zip: [place] [address]Zrl: 64Location: EDSex: MRoom/Bed:Att Phy:Diagnosis: covid+, coughPri Phy: Neo AllenGavin, III, MDService Date: 09/14/20Fam Phy:I nterpreting Phy: [facility]bert [facility]: Ordering Phy: Lico Davidson MD cc: ~ CT ANGIOGRAM OF THE CHEST CLINICAL HISTORY: Dyspnea. Tachycardia. Covid. COMPARISON STUDY: Chest x-ray dated 09/14/2020. TECHNIQUE: Following the IV administration of 118 cc of Optiray 320, CT angiogram of the chest was performed from the upper abdomen to the thoracic inlet utilizing the pulmonary embolus protocol. Images are reviewed in the axial, sagittal, and coronal planes. 3-D MIPS images are created and assessed. IV contrast was administered without complication. A dose lowering technique was utilized adhering to the principles of ALARA. CT DOSE: 960.90 mGy.cm FINDINGS: Thyroid: Imaged portions of the thyroid gland are normal in size and attenuation. Thoracic aorta: There is mild atherosclerotic calcification of the thoracic aorta, which is normal in caliber and demonstrates standard 3-vessel arch anatomy. No dissection is seen. Pulmonary vasculature: The pulmonary trunk is normal in caliber. There are no filling defects identified in main, lobar, or segmental pulmonary branches to suggest pulmonary embolus. Heart: The heart is enlarged and without pericardial effusion. The coronary arteries are densely calcified. Lungs and pleural spaces: There is multifocal groundglass consolidation identified throughout both lungs with a subpleural predominance. The trachea and central airways are clear. No pleural effusion is identified. A 9 mm pulmonary nodule at the right apex is seen on image #237. Mediastinum: There are mildly enlarged mediastinal lymph nodes. A subcarinal node on image #162 measures 1.6 cm in short axis. AP window node on image #207 measures 11 mm in short axis. These are likely reactive. Bernadette: Mildly enlarged hilar nodes measure up to 10 mm in short axis. Axillae: There is no axillary lymphadenopathy. Upper abdomen: There is a small hiatal hernia. A 2.8 cm cyst is partially visualized in the upper pole of the right kidney. The liver appears steatotic. Skeletal structures: The skeletal structures are osteopenic. Degenerative change and DISH are noted in the thoracic spine. No lytic or blastic bony lesions are seen. IMPRESSION: 1. There is no evidence of pulmonary embolus in the main, lobar, or segmental pulmonary arteries. 2. Multifocal groundglass consolidation is seen throughout both lungs, typical for an infectious/inflammatory pneumonitis. 3. Cardiomegaly. 4. A 9 mm pulmonary nodule is seen at the right apex. Follow-up is recommended as per the Fleischner criteria below. 5. Additional findings as above. Please refer to below summary of Fleischner criteria recommendations for follow- up of incidental CT nodules (Jasson Cortez, Guidelines for management of small pulmonary nodules detected on CT scans: A statement from the Fleischner Society, Radiology 237: [phone].) SOLID NODULES Solitary nodule size: <6 mm * low risk patients: no follow-up needed * high risk patients: optional CT at 12 months Solitary nodule size: 6-8 mm * low risk patients: follow-up at 6-12 months, then consider further follow-up at 18-24 months * high risk patients: initial follow-up CT at 6-12 months and then at 18-24 months if no change Solitary nodule size: >8 mm * either low or high risk patients - consider follow-up CT at 3 months, and/or CT-PET, and/or biopsy Multiple nodules size: <6 mm * low risk patients: no routine follow-up * high risk patients: optional CT at 12 months Multiple nodules size: 6-8 mm * low risk patients: follow-up at 3-6 months, then consider further follow-up at 18-24 months * high risk patients: follow-up at 3-6 months, then at 18-24 months if no change Multiple nodules size: >8 mm * low risk patients: follow-up at 3-6 months, then consider further follow-up at 18-24 months * high risk patients: follow-up at 3-6 months, then at 18-24 months if no change Note: newly detected indeterminate nodule in persons 35 years of age or older. * low risk patients: minimal or absent history of smoking and/or other known risk factors * high risk patients: history of smoking or of other known risk factors (e.g. first degree relative with lung cancer, or exposure to asbestos, radon, uranium) * if a nodule up to 8 mm is partly solid or is ground glass further follow-up is required after 24 months to exclude possible slow growing adenocarcinoma (GUSTAVO) SUBSOLID NODULES Solitary pure ground-glass nodule * nodule size <6 mm - no CT follow-up required * nodule size >=6 mm - follow-up CT at 6-12 months, then every 2 years until 5 years Solitary part-solid nodule * nodule size <6 mm - no CT follow-up required * nodule size >=6 mm - follow-up CT at 3-6 months. If unchanged, and solid component remains <6 mm, then annual follow-up for 5 years Multiple subsolid nodules * nodule size <6 mm - follow-up CT at 3-6 months, consider further follow-up at 2 and 4 years if stable * nodule size >=6 mm - follow-up CT at 3-6 months, subsequent management based on the most suspicious nodule(s) ACT 112: Negative or not required by law. Electronically signed by: Yan Talbert M.D. 09/14/2020 7:55 PM Dictated: 09/14/201946Transcribed: 09/14/201946 Code Status & VTE Plan Code Status Full code VTE Prophylaxis Plan VTE Prophylaxis will be ordered: Yes PG Care Time/CCT Total # of Minutes Spent Total Time Spent with Patient: Total time spent is greater than 50% in coordination of care (as documented) at patient's floor/unit and/or counseling patient: Coding Level of Care Code 68856 Initial Inpt Care Lvl 3 Diagnoses COVID-19 virus infection U07.1 Hypoxia R09.02 Cough R05 BPH (benign prostatic hyperplasia) N40.0 Hypertension I10 Inguinal hernia, left K40.90 Hypercholesteremia E78.00
[2020-09-15] MEDS ORDERED: ONDANSETRON INJ 2 MG/ML 2 ML VIAL IV PRN (00:54)
[2020-09-15] MEDS ORDERED: ENOXAPARIN 0.5 MG/KG SQ SCH (00:54)
[2020-09-15] MEDS ORDERED: CETIRIZINE HCL 10 MG TABLET PO PRN (00:54)
[2020-09-15] MEDS ORDERED: ACETAMINOPHEN 325 MG TAB PO PRN (00:54)
[2020-09-15] MEDS ORDERED: ATORVASTATIN 20 MG TAB PO SCH (01:15)
[2020-09-15] MEDS ORDERED: DOXAZosin MESYLATE TAB 2 MG TAB PO SCH (01:15)
[2020-09-15] MEDS ORDERED: ATENOLOL 25 MG TABLET PO SCH (01:15)
[2020-09-15] MEDS ORDERED: ASPIRIN 81 MG ECTAB PO SCH (01:15)
[2020-09-15] MEDS ORDERED: SODIUM CHLORIDE 0.9% 10ML FLUSH IV SCH (02:00)
[2020-09-15] MEDS ORDERED: REMDESIVIR 200 MG in SODIUM CHLORIDE 0.9% 210 ML IV ONE (02:00)
[2020-09-15] MEDS ORDERED: HYDROcodone/HOMATROPINE SYRUP 5MG/1.5MG 5ML UDP PO STA (02:47)
[2020-09-15] MEDS ORDERED: HYDROcodone/HOMATROPINE SYRUP 5MG/1.5MG 5ML UDP PO PRN (04:55)
[2020-09-15] MEDS ORDERED: ALBUTEROL HFA 8 GM INHALER INH ONE (05:00)
[2020-09-15] MEDS ORDERED: ALBUTEROL HFA 8 GM INHALER INH SCH (07:00)
[2020-09-15] MEDS ORDERED: ENOXAPARIN 80 MG/0.8 ML SYR SQ SCH (09:00)
[2020-09-15] MEDS ORDERED: dexAMETHasone 6 MG in SYRINGE 0 ML IV SCH (09:00)
[2020-09-15] MEDS ORDERED: AZITHROMYCIN 500 MG in DEXTROSE 5% 250 ML IV SCH (09:00)
[2020-09-15] MEDS ORDERED: ZINC SULFATE 220 MG CAPSULE PO SCH (09:00)
[2020-09-15] MEDS ORDERED: ALBUTEROL HFA 8 GM INHALER INH PRN (09:27)
--- NOTE | 2020-09-15 15:52 | Discharge Summary ---
Date of Service September 15, 2020 Admission HPI Per Admitting Provider Work-up in the emergency departmentThe patient is a 64-year-old male with a past medical history including arthritis, BPH, cellulitis, hypertension, left inguinal hernia, prostatitis, urinary incontinence, impaired fasting glucose, hypercholesterolemia and morbid obesity. He presents as noted above. Work-up in the emergency department included a pulse ox of 93% on room air. Chest x-ray showed moderately severe bilateral interstitial infiltrates and pneumonia. CT angio of chest PE protocol was negative for PE, but did show bilateral interstitial pneumonitis, and pulmonary nodule 9 mm in size. Pertinent laboratories include the following: Platelets 108, AST 43 Principal Diagnosis Covid-19 Discharge Exam Constitutional WD/WN, vitals as above Eyes EOM intact bilaterally; no conjunctival abnormality ENMT external ear and nose normal, oropharynx normal Neck trachea midline, no thyromegaly normal visual inspection Respiratory normal respiratory effort, lungs clear to auscultation no respiratory distress Cardiovascular RRR, no murmur, no edema Gastrointestinal (Abdomen) Inspection/Auscultation: abdomen normal to inspection; abdomen not distended Musculoskeletal no cyanosis or clubbing, extremities motor strength 5/5 Skin no rashes, warm and dry Neurologic moves all extremities and awake Psychiatric Orientation: alert, oriented to person and cooperative Discharge Data Allergies Allergy/AdvReac Type Severity Reaction Status Date / Time No Known Allergies Allergy Verified 09/14/20 19:04 Consultations 09/14/20 20:28 ED Decision to Admit Stat 09/15/20 00:54 Consult Case Management - Discharge Planning Routine Ordered Studies 09/14/20 16:46 CT angio chest PE protocol Stat Hospital Course (1) COVID-19 virus infection: COVID-19 virus infection without hypoxia. - No need for steroids, remdesivir, or plasma. - Sent home on Hycodan syrup 5 mils p.o. every 4 hours as needed. (2) Hypoxia: Transient, but SpO2 > 95% on room air. - See above (3) Cough: See above (4) BPH (benign prostatic hyperplasia): BPH with LUTS- Continue doxazosin 2 mg p.o. daily (5) Hypertension: Continue aspirin and atenolol (6) Inguinal hernia, left: Patient reports he was due for surgery in 1 week, but had to be canceled due to the Covid infection. We will suppress cough with Hycodan to help prevent worsening pain (7) Hypercholesteremia: Continue atorvastatin 20 mg daily Total Time Total Time Spent Total Time Spent (In Minutes): 35 Discharge Plan Discharge Items Patient Disposition: Home - Self-Care Reason For Visit: covid+, cough Discharge Diagnosis: Covid pneumonia Activity: Resume your previous activity Non-emergency contact: Primary Care Provider Call non-emergency contact if: your symptoms worsen Follow-up/Referrals: Neo Allen III, MD [Primary Care Provider] - Diet: Regular Addtl Attending Provider Instructions: You were admitted to the hospital with Covid. Fortunately, you are doing well, so we are able to send you home. Please isolate for 1 more week, then you should not be infectious at that time, even if you still have some cough because that would be >2 weeks past your initial positive test. Pending Studies at Discharge: No Stand-Alone Forms: My [facility] IMRSV, Smoking Cessation Medications and DC Order Prescriptions: New hydrocodone-homatropine [Hydromet] 5-1.5 mg/5 mL Syrup 5 ml PO Q4H PRN (Reason: cough) Qty: 473 RF: 0 Continued atenolol 25 mg tablet 25 mg PO HS Qty: 90 RF: 3 atorvastatin 20 mg tablet 20 mg PO DAILY Qty: 90 RF: 3 doxazosin [Cardura] 2 mg tablet 2 mg PO DAILY Qty: 30 RF: 11 aspirin 81 mg tablet,delayed release (DR/EC) 81 mg PO DAILY RF: 0 ibuprofen 200 mg tablet 200 mg PO QID PRN (Reason: Pain) RF: 0 cetirizine 10 mg tablet 10 mg PO DAILY PRN (Reason: Allergy Symptoms) RF: 0 Discharge Orders: Discharge Order (Routine); Ordered 09/15/20 Ordered By: Antoine Chanel Admission Data Admit Date/Time: 09/14/20 23:38 Attending Provider: Antoine Chanel Admit Provider: Edison Reyes Primary Care Provider: Neo Allen III Other Providers: Antoine Chanel Other Interventions: Discharge Summary Assessment (RN) Last Done: 09/15/20 12:54 Coding Level of Care Code D/C Day Management >30 mins Diagnoses COVID-19 virus infection U07.1 Hypoxia R09.02 Cough R05 BPH (benign prostatic hyperplasia) N40.0 Hypertension I10 Inguinal hernia, left K40.90 Hypercholesteremia E78.00
[2020-09-15] MEDS ORDERED: REMDESIVIR 100 MG in SODIUM CHLORIDE 0.9% 230 ML IV SCH (20:00)
--- NOTE | 2020-09-16 06:32 | Electrocardiogram Report ---
Test Reason : Blood Pressure : / mmHG Vent. Rate : 083 BPM Atrial Rate : 083 BPM P-R Int : 192 ms QRS Dur : 086 ms QT Int : 362 ms P-R-T Axes : 011 -01 031 degrees QTc Int : 425 ms Poor data quality, interpretation may be adversely affected Normal sinus rhythm Nonspecific T wave abnormality Abnormal ECG When compared with ECG of 17-DEC-2016 09:53, Vent. rate has increased BY 29 BPM Nonspecific T wave abnormality, worse in Lateral leads Confirmed by Jose Eduardo Sanchez ([id number]) on 09/16/2020 6:32:10 AM Referred By: REFERRED SELF Confirmed By:Jose Eduardo Sanchez
== END 2020-09-15 13:35 | disposition home or self-care (01) ==
LOC: ED 16:35 → EDINP 23:38 → SUATTDRO 23:38 → 2E 09-15 06:48

== ENCOUNTER 2022-02-23 10:16 | Observation (INO) ==
--- NOTE | 2022-01-27 12:04 | PAT Medication Instructions ---
Medication Instructions Date of Service January 27, 2022 Home Medications Medication Instructions Recorded atenolol 25 mg tablet 25 mg PO HS #90 tab 01/24/21 atorvastatin 20 mg tablet 20 mg PO HS #90 tab 02/11/21 aspirin 81 mg tablet,delayed release 81 mg PO QAM ibuprofen 200 mg tablet 400 mg PO QID PRN atenolol 25 mg tablet 25 mg PO HS atorvastatin 20 mg tablet 20 mg PO HS acetaminophen 500 mg capsule 500 mg PO QID PRN cetirizine 10 mg tablet (Zyrtec) 10 mg PO DAILY PRN ASK your surgeon for instructions ibuprofen 200 mg tablet 400 mg PO QID PRN DO NOT take the morning of surgery cetirizine 10 mg tablet (Zyrtec) 10 mg PO DAILY PRN Take morning of surgery With a small sip of water, OTHERWISE NOTHING TO EAT OR DRINK AFTER MIDNIGHT: aspirin 81 mg tablet,delayed release 81 mg PO QAM (continue as normal unless told otherwise by surgeon) acetaminophen 500 mg capsule 500 mg PO QID PRN (okay to take up to 4 hours prior to surgery if needed) Take evening before surgery atenolol 25 mg tablet 25 mg PO HS atorvastatin 20 mg tablet 20 mg PO HS acetaminophen 500 mg capsule 500 mg PO QID PRN (if needed) cetirizine 10 mg tablet (Zyrtec) 10 mg PO DAILY PRN (if needed) Other Notes If you have any questions please call us at [phone] or [phone] or [phone] or [phone]
--- NOTE | 2022-01-29 09:42 | Anesthesiology Consultation ---
Date of Service January 29, 2022 Assessment & Plan (1) Encounter for pre-operative examination: - h/o anesthesia reaction: swearing and exposing himself in post-op. - COVID screening: Per assessment on 01/29/2022: Travel screen negative, no known COVID-19 positive contacts or current COVID-19 related symptoms in past 2 weeks. Patient vaccinated. Surgeon arranging preop COVID testing, scheduled 02/19/2022. Awaiting results. Chart Review Chart Review: Acceptable Risk for Surgery and Patient NOT seen in Pre Admission Testing Teaching & Discussion Pre-Anesthesia Teaching/Discussion Notes: Instructed NPO after midnight before surgery, except medications with 15 cc of water. Medication instructions provided according to the PAT guidelines. History Surgery Operation Date: 02/23/22 12:30 Proposed Procedures p Right Total Hip Arthroplasty - Prashant Crum MD Height/Weight Height: 5 ft 9 in Weight: 115.5 kg Allergies Allergy/AdvReac Type Severity Reaction Status Date / Time No Known Allergies Allergy Verified 01/27/22 08:37 Medications Home Medications Medication Instructions Recorded Confirmed Last Taken aspirin 81 mg tablet,delayed 81 mg PO QAM 08/10/19 01/27/22 12/04/20 21:00 release ibuprofen 200 mg tablet 400 mg PO QID PRN 08/10/19 01/27/22 12/04/20 10:00 atenolol 25 mg tablet 25 mg PO HS #90 tab 01/24/21 01/27/22 Unknown atorvastatin 20 mg tablet 20 mg PO HS #90 tab 02/11/21 01/27/22 Unknown acetaminophen 500 mg capsule 500 mg PO QID PRN 01/27/22 01/27/22 Unknown cetirizine 10 mg tablet (Zyrtec) 10 mg PO DAILY PRN 01/27/22 01/27/22 Unknown Past Medical History Medical History (Updated 01/29/22 @ 15:09 by Isabela Ward PA-C) Arthritis BPH (benign prostatic hyperplasia) Dilatation of thoracic aorta mild aneurysmal dilatation of ascending thoracic aorta 4 cm on 04/[address] History of anesthesia reaction swearing and exposing himself in post-op History of COVID-19 09/06/[address] [place] [address], cough flu like symptoms. seen at [facility] ER and was admitted. Covid pnuemonia Feels good at present. Hypercholesteremia Hypertension controlled, stable per pt Prediabetes Pulmonary nodule Stable 8 mm nodule within the right lung apex on chest CT 04/2021 Pt states unsure if received a blood transfusion during initial hip replacement 15 yrs ago. Patient denies h/o stroke, seizures, heart attack, heart failure, DM, or blood clots. Exercise / Class Metabolic Activity II 4-5 Yardwork/Stairs/Walk up hill (denies CP or SOB with 1 FOS) Past Family History Family History Mother Breast cancer Lung disease Hypertension Father Colorectal cancer Sister Myocardial infarction Hypertension Brother Pulmonary embolism Other No family history of adverse response to anesthesia Denies family history of Ovarian cancer Prostate cancer Past Surgical History Surgical History (Updated 01/29/22 @ 10:03 by Isabela Ward PA-C) History of carpal tunnel surgery RT/LEFT History of lumbar laminectomy L5 History of tooth extraction History of total left knee replacement Hx of cataract surgery RT/LEFT Hx of colonoscopy S/P hip replacement left S/P left inguinal hernia repair Left Open Inguinal Hernia Repair with Mesh Dr. Zeng 12/05/2020: LMA #5. No postop issues per anesthesia progress note. Past Anesthesia History No Family Hx of Anesthesia Complications and Other (pt states has been told in past of swearing and exposing himself in post-op) History of PONV No Hx of PONV and No Hx of Motion Sickness Social History Smoking Status: Never smoker Do You Dip or Chew Tobacco: No Hx Alcohol Use: Yes alcohol intake frequency: holidays/special occasions only Hx Substance Use: No substance use type: does not use Review of Systems Snoring, denies witnessed apneas or sleep studies. Patient denies chest pain, shortness of breath, dyspnea on exertion, reflux, fever, chills, cough, wheezing, or palpitations. Physical Exam Vital Signs Vitals BP 157/81 (Pt states is somewhat anxious regarding surgery) P 72 TEMP 98.4 SP02 98% on RA RESP 17 Physical Full cervical extension range of motion without pain TMD 3.5 finger breaths Mallampati Score 3 Dentition: intact, several missing back teeth, several chipped teeth-one front upper left; denies loose teeth, caps/crowns, implants or bridges Lungs: normal respiratory effort. Clear throughout to auscultation, no adventitious breath sounds Cardiac: regular rate and rhythm, no murmurs noted Carotid arteries: negative bruit bilat Lab Results Anesthesia Preop Results Results Anesthesia Widget: WBC 5.84 K/uL (4.8-10.8) 01/29/22 Hgb 15.1 g/dL (14.0-18.0) 01/29/22 Hct 44.8 % (42-52) 01/29/22 Plt 227 K/uL (130-400) 01/29/22 Na 139 mmol/L (136-145) 01/29/22 K 4.9 mmol/L (3.5-5.1) 01/29/22 Cl 106 mmol/L (98-107) 01/29/22 CO2 28 mmol/L (21-32) 01/29/22 BUN 17 mg/dl (6-23) 01/29/22 Creat 0.87 mg/dl (0.6-1.4) 01/29/22 Glucose Level 97 mg/dl (70-99(Fasting)) 01/29/22 PT 10.7 Seconds (9.0-12.0) 01/29/22 PTT 27.4 Seconds (21.0-31.0) 01/29/22 INR 1.0 (0.9-1.1) 01/29/22 Blood Type O Positive 01/29/22 Antibody Screen NEGATIVE 01/29/22 Testing Electrocardiogram Date: 01/29/22 Sinus bradycardia, 49 bpm Other Testing Chest CT 04/08/21 1. Stable 8 mm nodule within the right lung apex. Continued follow-up as detailed below. 2. Mild aneurysmal dilatation of the ascending thoracic aorta measuring 4 cm. This remains unchanged. 3. No new pulmonary nodules identified.
--- NOTE | 2022-02-21 14:21 | History and Physical Report ---
DATE OF NOTE: 02/23/2022. CHIEF COMPLAINT: Right hip pain, discomfort and stiffness. HISTORY OF PRESENT ILLNESS: The patient is a 66-year-old gentleman who now presents for surgical leatha atment of his right hip. He has had a long history of hip problems. He has a left hip replaced by Hannah Buckley in 2007 . He has developed right hip pain and discomfort over the past several years, beco matthew more difficult and more painful. He has groin and thigh pain. He has difficulty putting his sh oes and socks on. He limps all day long and gets worse as the day goes on. He also has a history of some ankle arthritis. He would like to have his hip fixed. As stated above, the patient did have a left hip replacement by Dr. Buckley in 2007 and left knee repl acement done by Dr. Buckley in 2016. They seem to be doing okay. PAST MEDICAL HISTORY: Significant for: 1. Obesity with a BMI of 38. 2. Low back pain. PAST SURGICAL HISTORY: 1. Left hip replacement by Dr. Buckley on 03/26/2008. 2. Left knee replacement done on 01/04/2017. 3. Hernia surgery 1 year ago. 4. Carpal tunnel release. 5. L5 disk surgery. 6. Cataract surgery. ALLERGIES: None. CURRENT MEDICATIONS: 1. Aspirin once a day. 2. Atorvastatin. 3. Atenolol. 4. Hydrocodone. 5. Ibuprofen. SOCIAL HISTORY: A 66-year-old male. He does not smoke. No significant alcohol intake. He is marri ed. Self employed. FAMILY HISTORY: Noncontributory. REVIEW OF SYSTEMS: Negative for diabetes, neurologic problem, vascular problem, or bleeding disorder s. No history of DVT or PE. No known bleeding problems. PHYSICAL EXAMINATION: GENERAL: Fairly large middle-aged male. Looks to be in reasonably good health. HEENT: Benign. NECK: Supple. No lymphadenopathy. LUNGS: Clear to auscultation. HEART: Regular rate and rhythm. ABDOMEN: Soft, nontender, nondistended. EXTREMITIES: Grossly neurovascularly intact except as follows. Examination of the right hip reveal patient walks with a significantly antalgic gait. His right leg seems to be about 1 cm shorter than the left. He has marked pain with hip motion. He has external r otation contracture of his hip about 10 degrees. Negative straight leg raise. X-RAYS: X-rays of the right hip are reviewed. It shows advanced right hip DJD. He has complete los s of joint space. He has extensive osteophytes around the femoral head and acetabulum. The left hip replacement looks to be in good position without signs of problems. He does look like it has subsid ed from probably initial implantation. ASSESSMENT: A 66-year-old gentleman with advanced right hip degenerative joint disease. He has fail ed conservative measures. He does have a history of right ankle degenerative joint disease as well a s a left hip replacement and left knee replacement done by Dr. Buckley in the past. He is morbidly ob flower with a BMI of 37. PLAN: We talked about treatment. He would like to have his hip fixed. We will proceed with right t otal hip replacement. We will do the best we can to equalize his leg lengths. The risks and benefit s of right total hip replacement were explained to the patient include but not limited to DVT, PE, de ath, infection, neurological injury, vascular injury, bleeding problem, pain, limited range of motion , stiffness, failure to relieve symptoms, incomplete relief of symptoms, need for further surgery in the future, etc. The patient understands and desires to proceed. Informed consent was obtained. He will take his atenolol the morning of surgery with a sip of water. He is planning to be discharge d to home. Job ID: [id number]
[~2022-02-23 10:16] MED LIST changes: -500ML BSS 0.3ML EPI 1:1000PF IRRIG ONE; -ACETAMINOPHEN 325 MG TAB PO PRN; +ACETAMINOPHEN 500 MG TAB PO SCH; -AMVISC PLUS 0.8ML SYRINGE INT OCU ONE; -ASPCH81X PO; -ATEN-173 PO; -ATOR-22 PO; -BSS FLUSH ONE; +BUPIVACAINE 0.5 % 5 MG/1 ML PF 10ML VIAL ONE; -CETI10TA84 PO; -ENDOCOAT 0.85ML SYRINGE INT OCU ONE; -EpINEphrine INJ 1MG/ML AMP 1 MG/ML AMP ONE; +FAMOTIDINE 20 MG TAB PO SCH; -FENTANYL CITRATE INJ 50 MCG/1 ML 2 ML VIAL ONE; -IBUP-103 PO; -LACTATED RINGER'S 1000ML 500 ML IV SCH; -LIDOCAINE 4% OP SOLN DROP CHARGE ONE; -LIDOCAINE 4% OP SOLN DROP CHARGE OPR SCH; -LIDOCAINE HCL 1% MPF 2 ML VIAL ONE; +LR 500ML BOLUS, THEN 15ML/HR IV SCH; +LR 60ML/HR IV SCH; -MIDAZOLAM HCL 1 MG/ML 2ML VIAL ONE; -MIX: 4ML BSS 1ML EPI 1:1000 PF TOP ONE; -MOXIFLOXACIN OPH SOLN PER DROP CHARGE ONE; +Nursing to Pharmacy Communication SCH; -POVIDONE-IODINE OP SOLN 30 ML BTL ONE; -PROPARACAINE 0.5% OP SOLN PER DROP CHARGE OPR SCH; +Scopolamine 1 MG TDSY TD SCH; -TOBRAMYCIN/DEXAMETHASONE OPH OINT PER APPLN CHARGE ONE; +TRANEXAMIC ACID 1,000 MG **IV Intra-op IV SCH; +TRANEXAMIC ACID 1,000 MG **IV Pre-op IV SCH; +ceFAZolin 2000MG 2,000 MG/15 ML SYR IV SCH; +dexAMETHasone 4 MG TAB PO SCH
--- NOTE | 2022-02-23 11:25 | History & Physical Bridge Note ---
Date of Service February 23, 2022 History & Physical Bridge Note I have examined the patient, reviewed the History & Physical and in the interval since the performance of the History & Physical I have noted the following changes of clinical significance: no changes noted
[2022-02-23] MEDS ORDERED: MIDAZOLAM HCL 1 MG/ML 2ML VIAL ONE (12:03)
[2022-02-23] MEDS ORDERED: fentaNYL citrate 100 MCG/2 ML VIAL ONE (12:03)
[2022-02-23] MEDS ORDERED: EPINEPHrine INJ 1 MG/ML AMP ONE (12:54)
[2022-02-23] MEDS ORDERED: BUPIVACAINE 0.5 % 5 MG/1 ML MPF 30ML VIAL ONE (12:54)
[2022-02-23] MEDS ORDERED: LIDOCAINE 2% 2 ML VIAL/AMP(20MG/ML) INFIL ONE ×4 (13:29→14:16)
[2022-02-23] MEDS ORDERED: ONDANSETRON INJ 2 MG/ML 2 ML VIAL ONE (13:29)
[2022-02-23] MEDS ORDERED: PROPOFOL IV EMULSION 10 MG/ML 20 ML VIAL IV ONE ×3 (13:29→14:09)
[2022-02-23] MEDS ORDERED: GLYCOPYRROLATE 0.2 MG/ML VIAL ONE (13:29)
[2022-02-23] MEDS ORDERED: KETOROLAC 30 MG/ML VIAL ONE (13:30)
[2022-02-23] MEDS ORDERED: ePHEDrine sulfate 50 MG/ML SYR ONE (13:55)
[2022-02-23] MEDS ORDERED: ATROPINE SULFATE 0.1 MG/ML 10ML SYR IV PRN (14:02)
[2022-02-23] MEDS ORDERED: ONDANSETRON INJ 2 MG/ML 2 ML VIAL IV PRN ×2 (14:02→16:02)
[2022-02-23] MEDS ORDERED: PROMETHAZINE HCL 6.25 MG in SODIUM CHLORIDE 0.9% 50 ML IV PRN (14:02)
[2022-02-23] MEDS ORDERED: ePHEDrine sulfate 50 MG/ML AMP IV PRN (14:02)
[2022-02-23] MEDS ORDERED: fentaNYL citrate 100 MCG/2 ML VIAL IV PRN (14:02)
--- NOTE | 2022-02-23 14:57 | Operative Report ---
PG Post Operative Report Pre & Post Diagnosis Operation Date: 02/23/22 12:30 Pre-Op Diagnosis: Right Hip Osteoarthritis Post-Op Diagnosis: Right Hip Osteoarthritis I identified the patient and participated in the time-out.: Yes Procedure Operation Date: 02/23/22 12:30 Actual Procedures p Right Total Hip Arthroplasty(Right) - Prashant Crum MD Surgeon Prashant Crmu MD [facility] Lon Fernandez PA-C Estimated Blood Loss 200 Findings Consistent with Post-Op Diagnosis Operative findings revealed advanced right hip DJD. Extensive grade 4 [id number] disease. His acetabular screw is extremely sclerotic. Large anterior acetabular osteophyte. Fluids 1600 cc Specimens Right femoral head sent for pathology Anesthesia Type Spinal MAC Complications none Disposition Accompanied Patient To Recovery: Yes Indications Patient is a 66-year-old gentleman is had a long history of joint problems over the years. He had both his left hip and his left knee replaced in the past. Over time he developed increased pain discomfort in his right hip. Hip was bothering more than the knee. He failed conservative measures. He elected proceed with total hip arthroplasty. This patient appears to have some predisposition to HL and therefore we treated him with NSAIDs preoperatively and are going to treat him with a 1 month of NSAIDs postoperatively. Description of Procedure Operative implants consisted of: 1. Biomet G7 size 56 mm acetabular shell. 2. [place] hole assembler aircraft power plant. 3. 6.5 cancellous acetabular screws 135 mm length 125 mm length. 4. Highly cross-linked polyethylene liner with a 56 mm outer diameter and 36 mm inner diameter. 5. DePuy Kar[place] size 11 KLA femoral stem. 6. +5/36 mm ceramic articular ball. The patient was taken to the operating, identified, and placed on the operating table supine position protectors were properly padded. IV antibiotics tried by anesthesia team. A spinal anesthetic had been employed in the holding area. Rutledge catheter was placed in sterile fashion. Patient was then placed in the left lateral cubitus position. Axillary roll was placed. A Stulberg hip posi tioner was used for positioning. The right hip and leg were then prepped and draped in usual sterile fashion. A posterior lateral approach of the right hip was then performed to a curvilinear incision centered over the greater trochanter. Sharp dissection Through subcutaneous this down to the IT band gluteal fascia the IT band gluteal fascia were incised longitudinally in line with skin incision. The underlying greater Bursa was excised. The piriformis and external rotators and the posterior hip joint capsule were then released as a single layer of the back of the hip joint. Great care was taken throughout the procedure protect the sciatic nerve at all times. Hip was internally rotated and dislocated. Femoral neck osteotomy cut was made with Final Cut about 15 mm above the lesser t rochanter. Femoral head was removed and sent for pathology. Femur was retracted anteriorly. Attention drawn the acetabulum.. Sequential reaming the acetabulum was then performed begin with size 47 and progressing up to a 55. Reamer little bit with a 56 reamer and then placed a 56 mm cup in about 40 degrees lateral opening and 20 to 25 degrees of anteversion. It was fixed with two 6.5 cancellous acetabular screws. A large anterior and anterior inferior osteophyte was removed off the acetabulum. A trial liner was placed. Attention drawn the femur. The proximal femur was entered with a cookie cutter followed by canal finder. I then broached begin the size 8 and progressed up to 11. Got excellent fit at 11. We trialed the hip and the +5 articular ball provide full stability and si nce soft tissue tension appropriately. I tried to lengthen the little bit as he was a bit short on the side but did not feel like of length and many more without stretching the soft tissues. We elect to place these implants. All trial implants were removed. An apex hole assembler aircraft power plant was placed. Highly cross-linked polyethylene liner was placed. A DePuy size 11 KLA femoral stem was impacted in position. A +5/36 mm ceramic articular ball was placed. Hip was located once again found to be stable. The wound was irrigated with copious pulsatile lavage solution. I did inject locally with 60 cc of absent Marcaine with epinephrine. The posterior capsule and external rotators were then repaired through drill holes in the single layer with #2 Tycron suture. The IT band gluteal fascia then closed in 1 PDS suture running fashion the subcutaneous tissue then closed with 2 layers of the deep layer #1 Vicryl suture and subcutaneous tissue with 2-0 Dexon suture in a buried interrupted fashion the skin was closed skin bubba. Leg was then cleaned and dried and sterile dressed with Xeroform, 4 fours, sterile ABD pad, foam tape was applied. The patient then transferred to the recovery room in stable condition. Patient tolerated procedure well and there were no complications. Lon Fernandez, my physician assistant tennis coach, was present for the entire procedure. His assistance was essential and required for appropriate patient positioning, prepping and draping, surgical exposure, performing the technical details of the operation, placement the implants, closure of the wound, and placement of the sterile bandage. I attest to the content of the Intraoperative Record and any orders documented therein. Any exceptions are noted below.
--- NOTE | 2022-02-23 15:16 | XRay Report ---
AP PELVIS, CROSSTABLE LATERAL RIGHT HIP History: Right total hip arthroplasty. Degenerative arthritis. Postop. FINDINGS: The patient is status post a right total hip arthroplasty. The hardware is intact. No fract ure or dislocation. Skin bubba are in place. Evidence for prior left total hip arthroplasty. IMPRESSION: Right total hip arthroplasty. No evidence for hardware complication ACT 112: Negative or not required by law. Electronically signed by: Luis Suresh M.D. 02/23/2022 3:15 PM
--- NOTE | 2022-02-23 15:21 | Anesthesiology Progress Note ---
Date of Service February 23, 2022 Anesthesia Post Procedure Vital Signs Vital Signs: Temp Pulse Pulse Resp BP Pulse Ox 02/23/22 15:05 74 12 111/68 99 02/23/22 14:55 79 16 108/68 98 02/23/22 14:45 36.4 C L 91 H 18 102/61 99 02/23/22 10:43 36.7 C 62 20 169/92 H 97 Transfer of Care Handoff Completed per policy Notes Mental Status: alert / awake / arousable Patient Amnestic to Procedure: Yes Nausea / Vomiting: adequately controlled Pain: adequately controlled Airway Patency, RR, SpO2: stable & adequate BP & HR: stable & adequate Hydration State: stable & adequate Neuraxial Anesthesia: was administered and sensory block is resolving Anesthetic Complications: no major complications apparent
[2022-02-23] MEDS ORDERED: Scopolamine CHECK PATCH PLACEMENT SCH (16:00)
[2022-02-23] MEDS ORDERED: MAGNESIUM HYDROXIDE SUSP 30 ML UDC PO PRN (16:02)
[2022-02-23] MEDS ORDERED: NALOXONE HCL 0.4 MG/1 ML VIAL/CARP IV PRN (16:02)
[2022-02-23] MEDS ORDERED: HYDROmorphone INJ 0.5 MG/0.5 ML SYR IV PRN (16:02)
[2022-02-23] MEDS ORDERED: METOCLOPRAMIDE HCL INJ 5 MG/ML 2 ML VIAL IV PRN (16:02)
[2022-02-23] MEDS ORDERED: CETIRIZINE HCL 10 MG TABLET PO PRN (16:02)
[2022-02-23] MEDS ORDERED: bisacodyL 10 MG SUPP PR PRN (16:02)
[2022-02-23] MEDS ORDERED: HYDROmorphone HCL 2 MG TAB PO PRN (16:02)
[2022-02-23] MEDS ORDERED: ALUMINUM/MAGNESIUM SUSP 30 ML UDC PO PRN (16:02)
[2022-02-23] MEDS ORDERED: Nursing to Pharmacy Communication SCH (16:45)
[2022-02-23] MEDS: KETOROLAC TROMETHAMINE 15 MG/ML VIAL IV SCH ×2 (16:54→21:47)
[2022-02-23] MEDS: SODIUM CHLORIDE 0.9% 1000ML 1,000 ML IV SCH ×2 (16:54→21:48)
--- NOTE | 2022-02-23 17:53 | Progress Notes ---
DATE OF NOTE: 02/23/2022. SUBJECTIVE: This is a 66-year-old gentleman postop from a right hip replacement. He is doing well. Really not having any pain yet. No chest pain or shortness of breath. Not feeling dizzy or lighthea ded. OBJECTIVE: VITAL SIGNS: Temperature is 36.4. Vital signs are stable. GENERAL: Shows a pleasant middle-aged male. Sitting on bed, talking to his . He looks comforta ble. LUNGS: Clear to auscultation. HEART: Regular rate and rhythm. ABDOMEN: Soft, nontender, nondistended. EXTREMITIES: Grossly neurovascularly intact except as follows. Examination of the right hip and leg reveals the leg to be well aligned. Leg lengths are equal. He can dorsiflex and plantarflex his foot appropriately. He is neurologically intact. X-RAYS: X-rays of the right hip from recovery room were reviewed. It shows right uncemented total h ip arthroplasty. Components looked to be in good position. No signs of problems. ASSESSMENT: A 66-year-old gentleman, postoperative from right hip replacement, doing well. Pain is controlled. Hip is located. He is neurologically intact. PLAN: 1. DVT prophylaxis include thigh-high TEDs, SCDs, and aspirin twice a day. 2. PT, OT, weightbear as tolerated. Right total hip protocol. 3. Pain control, doing well with current pain regimen. 4. IV antibiotics x24 hours. 5. Disposition: He is planning to be discharged to home. He is not sure whether he is going to do home therapy or how he is going to work that. He will see how he does in therapy tomorrow. Job ID: [id number]
[2022-02-23] MEDS: ASCORBIC ACID 500 MG TAB PO SCH (18:03)
[2022-02-23] MEDS: ASPIRIN 81 MG ECTAB PO SCH (20:06)
[2022-02-23] MEDS: DOCUSATE SODIUM 100 MG CAP PO SCH (20:07)
[2022-02-23] MEDS: ceFAZolin 2000MG 2,000 MG/15 ML SYR IV SCH (20:07)
[2022-02-23] MEDS ORDERED: TRANEXAMIC ACID / 0.7% NACL 1,000 MG/100 ML BAG IV SCH (20:45)
[2022-02-23] MEDS ORDERED: SENNA 8.6 MG TAB PO SCH (21:00)
[2022-02-23] MEDS ORDERED: ATENOLOL 25 MG TABLET PO SCH (21:00)
[2022-02-23] MEDS ORDERED: ATORVASTATIN 20 MG TAB PO SCH (21:00)
[2022-02-23] MEDS: ACETAMINOPHEN 500 MG TAB PO SCH (21:47)
[2022-02-24] MEDS: ceFAZolin 2000MG 2,000 MG/15 ML SYR IV SCH (04:29)
[2022-02-24] MEDS: ACETAMINOPHEN 500 MG TAB PO SCH ×2 (04:30→13:29)
[2022-02-24] MEDS: KETOROLAC TROMETHAMINE 15 MG/ML VIAL IV SCH ×2 (04:31→11:54)
[2022-02-24] MEDS: SODIUM CHLORIDE 0.9% 1000ML 1,000 ML IV SCH (04:42)
[2022-02-24 07:33] LABS: Basophils # (auto) 0.01 K/uL (0-0.2); Basophils % (auto) 0.1 %; Hematocrit (blood only) 37.1 % (42-52); Hemoglobin 12.4 g/dL (14.0-18.0); Immature Granulocytes # (auto) 0.03 K/uL (0.00-0.02); Immature Granulocytes % (auto) 0.3 %; Lymphocytes # (auto) 1.21 K/uL (1.2-3.4); Lymphocytes % (auto) 10.1 %; Mean Corpuscular Hemoglobin 29.5 pg (25-34); Mean Corpuscular Hgb Conc 33.4 g/dL (32-36); Mean Corpuscular Volume 88.1 fL (80-100); Mean Platelet Volume 9.9 fL (7.4-10.4); Monocytes # (auto) 1.13 K/uL (0.11-0.59); Monocytes % (auto) 9.5 %; Neutrophils # (auto) 9.56 K/uL (1.4-6.5); Platelet Count 202 K/uL (130-400); RDW Coefficient of Variation 13.3 % (11.5-14.5); RDW Standard Deviation 42.9 fL (36.4-46.3); Red Blood Count 4.21 M/uL (4.7-6.1); White Blood Count 11.94 K/uL (4.8-10.8)
[2022-02-24 07:53] LABS: BUN Creatinine Ratio 19.8 (10-20); Calcium 8.9 mg/dl (8.5-10.1); Creatinine Clr Calc Pharmacy 101.4 ml/min; Est GFR (African American) 102.1 ml/min; Est GFR (Non-African American) 88.1 ml/min; Potassium 4.2 mmol/L (3.5-5.1)
[2022-02-24] MEDS ORDERED: dexAMETHasone 10 MG in SYRINGE 0 ML IV SCH (08:00)
[2022-02-24] MEDS ORDERED: TAMSULOSIN HCL 0.4 MG CAP PO SCH (09:00)
[2022-02-24] MEDS: ASPIRIN 81 MG ECTAB PO SCH (09:00)
[2022-02-24] MEDS: DOCUSATE SODIUM 100 MG CAP PO SCH (09:00)
[2022-02-24] MEDS: ASCORBIC ACID 500 MG TAB PO SCH (09:00)
[2022-02-24] MEDS ORDERED: MULTIVITAMIN TAB PO SCH (09:00)
[2022-02-24] MEDS ORDERED: DOCUSATE SODIUM/SENNA 50/8.6MG TAB PO SCH (09:00)
--- NOTE | 2022-02-24 14:00 | Progress Notes ---
DATE OF SERVICE: 02/24/2022 SUBJECTIVE: A 66-year-old gentleman, postoperative day 1 from right hip replacement. He is doing we ll. Therapy has gone well. Denies any chest pain or shortness of breath. Not feeling dizzy or ligh theaded. He is hoping to go home. OBJECTIVE: VITAL SIGNS: Temperature is 36.9. Vital signs are stable. PHYSICAL EXAMINATION: GENERAL: Shows a pleasant middle-aged male. He is sitting up at his bedside chair, looks quite comf ortable. EXTREMITIES: Examination of the right hip reveals the dressing to be clean, dry and intact. Leg adriana gths are equal. He can do a straight leg raise. He can dorsiflex and plantarflex his foot appropria tely. He is neurologically intact. LABORATORIES: Hemoglobin 12.4. Hematocrit 37.1. Electrolytes are stable. ASSESSMENT: A 66-year-old gentleman postoperative day 1 from a right hip replacement, doing pretty w ell. His pain is controlled. Hip is located. He is neurologically intact. He is hoping to go home . PLAN: 1. DVT prophylaxis includes thigh-high TEDs, SCDs, and aspirin twice a day. 2. PT, OT, weightbear as tolerated. Right total hip protocol. 3. Pain control, doing okay with current pain regimen. 4. Disposition: He is planned to discharge to home later today if he does okay in therapy. Job ID: [id number]
== END 2022-02-24 13:42 | disposition home health service (06) ==
LOC: 3E 10:16 → ASU 10:16
DX: M16.12 Unilateral primary osteoarthritis, left hip; Z79.82 Long term (current) use of aspirin; Z79.899 Other long term (current) drug therapy